=== PATIENT | female | born 1945 | race Caucasian/White ===

== ENCOUNTER 2024-12-22 19:44 | Inpatient (IN) | payer MEDICARE, OTHER, SELFPAY ==
[2024-12-22] VITALS (13 sets, daily range): BP systolic 136–164; BP diastolic 83–95; PULSE 93–115; RESP 15–31; TEMP 37.4–37.7; O2SAT 96–100; BMI 34.2
--- NOTE | ~2024-12-22 | XR_ITS ---
EXAMINATION: XR chest 1V portable DATE: 12/22/2024 20:12 INDICATION: Cough and congestion. TECHNIQUE: A single frontal view of the chest was obtained. COMPARISON: None. FINDINGS: There are mild airspace opacities in the lower lung zones. No pleural effusion or pneumotho rax. The heart size is normal. Surgical clips in the right upper quadrant are likely from cholecystec rufino. IMPRESSION: 1. Mild airspace opacities in the lower lung zones, consistent with atelectasis versus pneumonia. Reviewed, dictated and finalized at location A. MANAGER
--- NOTE | ~2024-12-22 | XR_ITS ---
EXAMINATION: XR chest 1V portable DATE: 12/25/2024 10:02 INDICATION: Pneumonia. TECHNIQUE: A single frontal view of the chest was obtained. COMPARISON: Chest single view 12/22/24 FINDINGS: There are airspace opacities at left lung base. No pleural effusion or pneumothorax of the heart size is normal. IMPRESSION: 1. Worsened airspace opacities at left lung base, consistent with atelectasis versus pneumonia. Reviewed, dictated and finalized at location A. RNAL AUDIT SENIOR MANAGER IMPRESSION: 1. Worsened airspace opacities at left lung base, consistent with atelectasis v ersus pneumonia.
[2024-12-22] MEDS: ONDANSETRON HCL ODT 4 MG TABLET PO (20:19)
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
[2024-12-22 20:36] LABS: Base Excess ABG -3.1 mmol/L (0-2); HCO3 ABG 20.2 mmol/L (23-29); Oxygen Saturation ABG 99.1 % (95-97); Oxyhemoglobin 97.8 % (94-100); PCO2 ABG 31.3 mmHg (35-45); PO2 ABG 260.8 mmHg (75-85); pH ABG 7.43 (7.35-7.45)
[2024-12-22 20:38] LABS: Basophils Absolute Auto 0.05 K/mm3 (0.00-0.10); Basophils Percent Auto 0.5 % (0.0-1.0); Eosinophils Absolute Auto 0.06 K/mm3 (0.02-0.50); Eosinophils Percent Auto 0.7 % (1.0-6.0); Hematocrit 40.7 % (35.0-42.0); Hemoglobin 13.2 g/dL (11.7-13.8); Immature Granulocyte Absolute 0.02 K/mm3 (0.00-0.00); Immature Granulocyte Percent A 0.2 % (0.0-0.0); Lymphocytes Absolute Auto 0.73 K/mm3 (1.10-4.50); Lymphocytes Percent Auto 7.9 % (18.0-42.0); Mean Corpuscular HGB Conc 32.4 g/dL (32-36); Mean Corpuscular Hemoglobin 28.8 pg (27.0-31.0); Mean Corpuscular Volume 88.9 fL (78.0-102.0); Mean Platelet Volume 9.2 fl (9.2-11.8); Monocytes Absolute Auto 0.42 K/mm3 (0.10-0.90); Monocytes Percent Auto 4.6 % (2.0-11.0); Neutrophils Absolute Auto 7.91 K/mm3 (1.70-7.20); Neutrophils Percent Auto 86.1 % (50.0-70.0); Platelet Count Result 256 K/mm3 (150-420); Red Blood Count 4.58 M/mm3 (4.20-5.40); Red Cell Distribution Width 13.1 % (11.6-14.4); White Blood Count 9.2 K/mm3 (4.8-10.8)
[2024-12-22 20:42] LABS: Device NON-REBREATHER MASK; Modified Allen's Test Pass; Site Drawn RIGHT BRACHIAL
[2024-12-22 20:45] LABS: Influenza A QL RT-PCR Positive (Negative); Influenza B QL RT-PCR Negative (Negative); RSV RNA, RT-PCR Negative (Negative); SARS-CoV-2 RNA PCR Negative (Negative)
[2024-12-22] MEDS: SODIUM CHLORIDE 0.9% IV 1,000 ML 999 ML IV CONT (20:48)
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
--- OUTSIDE RECORDS SUMMARY | 2024-12-22 20:48 | XMS_ITS | Clinical Summary ---
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 Not on file 11/12/2023 How often do you feel left out? Not on file 11/12/2023 How often to you feel isolated from others? Not on file 11/12/2023 Financial Resource Strain Answer Date R ecorded In the past 12 months, have you experienced difficulty paying for basic needs like housing, utilities, food, transportation, or clothing Not on file 11/12/2023 Are there any financial conc erns that limit you from seeing the doctor? Not on file 11/12/2023 Transportation Needs Answer Date Record ed In the past 12 months, has l ack of transportation kept you from medical appointments or from getting medications? Not on file 11/12/2023 In the past 12 months, has l ack of transportation kept you from meetings, work, or getting things needed for daily living? Not on file 11/12/2023 [facility] Living Situation Answer Date Jason rded What is your living situation today? Not on file 11/12/[address] you li ve. Do you have problems with any of the following? (Select all that apply) Not on file 11/12/19 24 [facility] Food Insecurity Answer Date Recor ded Within the past 12 months, y ou worried that your food would run out before you got money to buy more Not on file 11/12/2023 Within the past 12 months, t he food you bought just didn't last and you didn't have money to get more Not on file 11/12/2023 [facility] Answer Date Recorded In the last month, did poor health keep you from doing your usual activities, like work, school, or hobbies? Not on file 07/09 In the past year, was there a time when you needed to see a doctor, but could not because it cost too much? Not on file 2023 Do you ever need help reading medical forms or m aterials? Not on file 07/09/2024 Do you feel you would benefi t from resources related to stress, anxiety, or depression? Not on file 07/09/2024 [facility] Housing & Custodial Answer Date Re corded Are you worried that in the next 2 months, you may not have stable housing? Not on file 07/09/2024 Do you lack household suppli es like clothing, shoes, blankets, mattresses, diapers, toothpaste, or shampoo? Not on file 07/09/2024 Sex and Gender Information Value Date Recorded Sex Assigned at Not on file Gender Identity Not on file Sexual Orientation Not on file Plan of Treatment Not on file Medical Devices Not on file
--- OUTSIDE RECORDS SUMMARY | 2024-12-22 20:48 | XMS_ITS ---
Author Organization [facility] Address [address] [place] [address] Phone Care Team Providers Care Glass Crusher Name Role Phone Travis YAP, Eri Treadwell Primary Care Provider [phone] Problems Includes: Active, inactive, and resolved Problems All Visits Onset Date Resolved Date Provider Condition S tatus Radiculopathy 05/17/2020 DIGNA Sánchez DO Active Last Documented On 05/17/2020 3:24PM ; [facility] Note: Unchanged Adhesive Capsulitis of Shoulder Left 01/31/2020 DIGNA Sánchez DO Active Last Documented On 01/31/2020 2:04PM ; [facility] Note: Unchanged Aftercare Orthopedic 01/31/2020 DIGNA Sánchez DO Active Last Documented On 01/31/2020 2:04PM ; [facility] Note: Unchanged Complex Regional Pain Syndrome Type I Upper Limb Left 01/31/2020 DIGNA Sánchez DO Active Last Documented On 01/31/2020 2:04PM ; [facility] Note: Unchanged Contusion with Intact Skin Surface - Hand Left 10/18/2019 DIGNA Sánchez DO Active Last Documented On 10/18/2019 10:47AM ; [facility] Note: Unchanged Fracture of Radius Distal End Intra-articular 10/18/2019 Unknown DIGNA Sánchez DO Resolved Last Documented On 06/21/2020 10:54AM ; [facility] Note: Resolved Patient Communication Requirements 05/28/2016 DIGNA Sánchez DO Active Last Documented On 12/25/2020 2:42PM ; [facility] Note: Stable - none Plan of Treatment Findings Encounter Date Begin physical therapy for l eft hand/wrist pain, trial voltaren gel. recheck prn REVISIT with Spencer Salazar DO, FAOAO 12/25/2020 Last Documented On 1 3:56PM ; [facility] Ordered follow-up visit REVISIT with Spencer delgado DO, FAOAO 12/25/2020 Last Documented On 1 3:56PM ; [facility] Ordered goals discussed REVISIT with Spencer delgado DO, FAOAO 12/25/2020 Last Documented On 1 3:56PM ; [facility] Ordered options discussed REVISIT with Spencer aaron DO, FAOAO 12/25/2020 Last Documented On 1 3:56PM ; [facility] Ordered physical therapy service REVISIT with Mary Salazar DO, FAOAO 12/25/2020 Last Documented On 1 3:56PM ; [facility] Continue OT and PT recheck p rn. She may call for renewal of PT slips REVISIT with Spencer Salazar DO, FAOAO 08/23/2020 Last Documented On 0 2:08PM ; [facility] Ordered follow-up visit REVISIT with Spencer delgado DO, FAOAO 08/23/2020 Last Documented On 0 2:08PM ; [facility] Ordered goals discussed REVISIT with Spencer delgado DO, FAOAO 08/23/2020 Last Documented On 0 2:08PM ; [facility] Ordered options discussed REVISIT with Spencer aaron DO, FAOAO 08/23/2020 Last Documented On 0 2:08PM ; [facility] Continue OT and Plan EMG tiffany ateral arms, recheck for tests results REVISIT with Spencer Salazar DO, FAOAO 06/21/2020 Last Documented On 0 11:05AM ; [facility] Ordered follow-up visit REVISIT with Spencer mckinneyl DO, FAOAO 06/21/2020 Last Documented On 0 11:05AM ; [facility] Ordered goals discussed REVISIT with Spencer Dey ryl DO, FAOAO 06/21/2020 Last Documented On 0 11:05AM ; [facility] Ordered options discussed REVISIT with Spencer Kothari abryl DO, FAOAO 06/21/2020 Last Documented On 0 11:05AM ; [facility] Continue PT and Plan EMG tiffany ateral arms, recheck for tests results in one month REVISIT with Spencer Aragonl DO, FAOAO 05/17/2020 Last Documented On 0 4:26PM ; [facility] Ordered follow-up visit REVISIT with Spencer Dey ryl DO, FAOAO 05/17/2020 Last Documented On 0 4:26PM ; [facility] Ordered goals discussed REVISIT with Spencer Dey ryl DO, FAOAO 05/17/2020 Last Documented On 0 4:26PM ; [facility] Ordered options discussed REVISIT with Spencer Kothari abryl DO, FAOAO 05/17/2020 Last Documented On 0 4:26PM ; [facility] Continue PT and working with Dr. Benavidez and demonstrated exercises, reviewed restrictions. recheck in 2 months REVISIT with Spencer Deyryl DO, FAOAO 03/13/2020 Last Documented On 0 12:13PM ; [facility] Ordered follow-up visit REVISIT with Spencer Dey ryl DO, FAOAO 03/13/2020 Last Documented On 0 12:13PM ; [facility] Ordered goals discussed REVISIT with Spencer Dey ryl DO, FAOAO 03/13/2020 Last Documented On 0 12:13PM ; [facility] Ordered home exercises REVISIT with Spencer Deyr yl DO, FAOAO 03/13/2020 Last Documented On 0 12:13PM ; [facility] Ordered options discussed REVISIT with Spencer Kothari abryl DO, FAOAO 03/13/2020 Last Documented On 0 12:13PM ; [facility] Continue working with Dr. Jenny chamberlain but I will talk with Physical therapy for more help. Recheck in 3 weeks and Refer to Dr. Manjarrez for evaluation for left arm complex regional pain syndrome Telephone - Audio Only with Spencer Salazar DO, FAOAO 02/23/2020 Last Documented On 0 1:51PM ; [facility] Ordered follow-up visit Telephone - Luke o Only with Spencer Salazar DO, FAOAO 02/23/2020 Last Documented On 0 1:51PM ; [facility] Ordered goals discussed Telephone - Luke o Only with Spencer Salazar DO, FAOAO 02/23/2020 Last Documented On 0 1:51PM ; [facility] Ordered options discussed Telephone - [place] Only with Spencer Salazar DO, FAOAO 02/23/2020 Last Documented On 0 1:51PM ; [facility] Ordered reduced physical activity Teleph one - Audio Only with Spencer Salazar DO, FAOAO 02/23/2020 Last Documented On 0 1:51PM ; [facility] Continue gabapentin. Trial a tens unit and continue Physical therapy. recheck in 3 weeks POST OPERATIVE VISIT with Spencer Salazar DO, FAOAO 01/31/2020 Last Documented On 0 2:25PM ; [facility] Ordered follow-up visit POST OPERATIVE VISIT carolynn Salazar DO, FAOAO 01/31/2020 Last Documented On 0 2:25PM ; [facility] Ordered goals discussed POST OPERATIVE VISIT carolynn Salazar DO, FAOAO 01/31/2020 Last Documented On 0 2:25PM ; [facility] Ordered options discussed POST OPERATIVE VISIT with Spencer Salazar DO, FAOAO 01/31/2020 Last Documented On 0 2:25PM ; [facility] evaluate motion POST OPERATIVE VISIT with Elena King PA-C 01/03/2020 Last Documented On 0 3:14PM ; [facility] Ordered follow-up visit with Dr. Salazar in 3 weeks Review lab work and MRI of the wrist POST OPERATIVE VISIT with Elena King PA-C 01/03/2020 Last Documented On 0 3:14PM ; [facility] Plan removal of the external fixator at hospital under sedation tomorrow.Bring splint to surgical removal tomorrow to wear home REVISIT with Spencer Salazar DO, DIGNA 12/13/2019 Last Documented On 0 12:47PM ; [facility] Ordered follow-up visit REVISIT with Spencer delgado DO, FAOAO 12/13/2019 Last Documented On 0 12:47PM ; [facility] Ordered goals discussed REVISIT with Spencer delgado DO, FAOAO 12/13/2019 Last Documented On 0 12:47PM ; [facility] Ordered options discussed REVISIT with Spencer aaron DO, FAOAO 12/13/2019 Last Documented On 0 12:47PM ; [facility] Call if any concerns Tylenol alternating with Motrin every 4 hours for fever or pain Keep your appointment next Thursday with Dr. Salazar WORK IN with Manuel Strickland MD 12/09/2019 Last Documented On 0 11:33AM ; [facility] Pin from Fx removed today wh ich she tolerated well, will wait a few weeks to remove external fixation, patient will begin PT, recheck in 3 to 4 weeks with removal of external fixtation REVISIT with Spencer Salazar DO, FAOAO 11/29/2019 Last Documented On 0 12:09PM ; [facility] Ordered follow-up visit REVISIT with Spencer delgado DO, FAOAO 11/29/2019 Last Documented On 0 12:09PM ; [facility] Ordered goals discussed REVISIT with Spencer delgado DO, FAOAO 11/29/2019 Last Documented On 0 12:09PM ; [facility] Ordered home exercises I dem onstrated motion exercises for the hand REVISIT with Spencer Perez Yisselfayeanisa DO, FAOAO 11/29/2019 Last Documented On 0 12:09PM ; [facility] Ordered options discussed REVISIT with Spencer aaron DO, FAOAO 11/29/2019 Last Documented On 0 12:09PM ; [facility] Ordered physical therapy service REVISIT with Mary Aragonanisa DO, FAOAO 11/29/2019 Last Documented On 0 12:09PM ; [facility] Check wound REVISIT with Elena King PA-C 11/17/2019 Last Documented On 0 6:56PM ; [facility] evaluate motion REVISIT with Elena King PA-C 11/17/2019 Last Documented On 0 6:56PM ; [facility] recheck as scheduled in 2 wk s/ sooner prn REVISIT with Elena King PA-C 11/17/2019 Last Documented On 0 6:56PM ; [facility] Xray REVISIT with Elena King PA-C 11/17/2019 Last Documented On 0 6:56PM ; [facility] Ordered follow-up visit as s cheduled in 2 wks/ sooner prn REVISIT with Elena King PA-C 11/17/2019 Last Documented On 0 6:56PM ; [facility] Removed sutures today and ap plied new dressing to left wrist, external fixator in place.begin small movement as demonstrated. recheck in 3 weeks with xray POST OPERATIVE VISIT with Spencer Perez Yisselfayeanisa DO, FAOAO 11/03/2019 Last Documented On 0 11:34AM ; [facility] Ordered follow-up visit POST OPERATIVE VISIT carolynn Perez Yisselryl DO, FAOAO 11/03/2019 Last Documented On 0 11:34AM ; [facility] Ordered goals discussed POST OPERATIVE VISIT carolynn Perez Yisselryanisa DO, FAOAO 11/03/2019 Last Documented On 0 11:34AM ; [facility] Ordered options discussed POST OPERATIVE VISIT with Spencer Salazar DO, FAOAO 11/03/2019 Last Documented On 0 11:34AM ; [facility] Plan surgery with applicatio n external fixator and possible use of hydro set. Continue ice and elevation until surgery on Thursday10/20/19 REVISIT with Spencer Salazar DO, FAOAO 10/20/2019 Last Documented On 9 4:50PM ; [facility] Ordered follow-up visit REVISIT with Spencer delgado DO, FAOAO 10/20/2019 Last Documented On 9 4:50PM ; [facility] Ordered goals discussed REVISIT with Spencer delgado DO, FAOAO 10/20/2019 Last Documented On 9 4:50PM ; [facility] Ordered options discussed REVISIT with Spencer aaron DO, FAOAO 10/20/2019 Last Documented On 9 4:50PM ; [facility] Schedule CT of left wrist, r echeck for results, may need surgery after swelling resolves ER Follow Up Visit with Spencer Salazar DO, FAOAO 10/18/2019 Last Documented On 9 10:48AM ; [facility] Ordered follow-up visit ER Follow Up Visit with Spencer Salazar DO, FAOAO 10/18/2019 Last Documented On 9 10:48AM ; [facility] Ordered goals discussed ER Follow Up Visit with Spencer Salazar DO, FAOAO 10/18/2019 Last Documented On 9 10:48AM ; [facility] Ordered options discussed ER Follow Up Visit wit kar Salazar DO, FAOAO 10/18/2019 Last Documented On 9 10:48AM ; [facility] Wet prep collected. Discusse d possible causes for the burning including atrophic vaginitis, yeast, or bacterial vaginosis. UA was negative. Will notify patient of results OFFICE VISIT with Nilo Arzola NP 06/25/2018 Last Documented On 8 3:37PM ; [facility] UA collected. Patient would like to wait for results before starting any medication. Will notify patient of results and if treatment is needed OFFICE VISIT with Nilo Arzola NP 06/21/2018 Last Documented On 8 1:38PM ; [facility] left breast US ordered Will notify patient of results OFFICE VISIT with Nilo Arzola NP 04/20/2018 Last Documented On 8 2:16PM ; [facility] Vaginal PAP smear done. Disc ussed the risks of continued premarin use with patient. Patient insisted that she wanted a refill. She states that she can't deal with the hot flashes or vaginal dryness without the medication. Follow up in one year for annual exam or sooner if needed NEW PATIENT with Nilo Arzola NP 05/28/2016 Last Documented On 6 2:56PM ; [facility] Pending Tests Order Diagnosis Results Due Ordering Yessi tompkins Radiology - CT Scan Extremity Upper Left w/o contrast Oth intartic fracture of lower end of left radius, init 10/18/19 Spencer Salazar DO, FAOAO Last Documented On 9 10:45AM ; [facility] Radiology - MRI Upper Extremity - Other Oth intartic fracture of lower end of left radius, init 01/04/20 Elena King PA-C Last Documented On 0 3:18PM ; [facility] Radiology - 5 XRAY Upp Extremity Wrist Oth intartic fracture of lower end of left radius, init 01/04/20 Elena King PA-C Last Documented On 0 3:14PM ; [facility] Referrals To Diagnosis [facility] Rehab PT [facility] Department Rehabilitation Co ntusion of left hand, initial encounter Note: Gentle tissue massage of dorsal hand to mobilize fluid and gentle ROM of fingers Last Documented On 0 7:27AM ; [facility] Physical Medicine and Rehab Comp shania regional pain syndrome I of left upper limb Last Documented On 0 2:23PM ; [facility] Physical Medicine and Rehab Comp shania regional pain syndrome I of left upper limb Last Documented On 0 1:25PM ; [facility] Physical Medicine and Rehab Comp shania regional pain syndrome I of left upper limb Last Documented On 0 3:13PM ; [facility] Rehab PT [facility] Department Rehabilitation Primary osteoarthritis, left hand Note: left hand regional com plex pain syndrome and osteoarthritisleft wrist, most restriction around PIP joints of left fingers, increase motion, decrease pain Last Documented On 1 4:35PM ; [facility] Instructions to patient Watch for signs/symptoms of infection, return to the clinic if seen Last Documented On 0 3:04PM ; [facility] Watch for signs/symptoms of infection, return to the clinic if seen Last Documented On 0 6:54PM ; [facility] Clean incision as instructed Last Documented On 0 6:54PM ; [facility] Education and Decision Aids were provided during visit for: Ibuprofen 800 MG Oral Tablet (Medication) Last Documented On 0 2:21PM ; [facility] Patient Communication Requir ements (Problem) Last Documented On 0 2:21PM ; [facility] Patient education : Routine annual mammogram screening and Pap smear was discussed in detail. The patient verbalized understanding Last Documented On 6 2:49PM ; [facility] Assessments Includes: Assessments for all patient encounters Findings Encounter Date Arthralgia of left hand REVISIT with DIGNA Rodriguez DO 12/25/2020 Last Documented On 1 3:56PM ; [facility] Complex regional pain syndro me type I of the left upper limb REVISIT with DIGNA Sánchez DO 12/25/2020 Last Documented On 1 3:56PM ; [facility] Localized osteoarthritis of left hand RE VISIT with DIGNA Sánchez DO 12/25/2020 Last Documented On 1 3:56PM ; [facility] Localized primary osteoarthr itis of carpometacarpal joint of left thumb REVISIT with Spencer S Habryl DO, FAOAO 12/25/2020 Last Documented On 1 3:56PM ; [facility] Adhesive capsulitis of left shoulder REVISIT wit kar Spencer S Habryl DO, FAOAO 08/23/2020 Last Documented On 0 2:08PM ; [facility] Complex regional pain syndro me type I of the left upper limb REVISIT with Spencer S Habryl DO, FAOAO 08/23/2020 Last Documented On 0 2:08PM ; [facility] Radiculopathy -UPPER EXTREMITY REVISIT with Owen s S Habryl DO, FAOAO 08/23/2020 Last Documented On 0 2:08PM ; [facility] Adhesive capsulitis of left shoulder REVISIT wit kar Spencer S Habryl DO, FAOAO 06/21/2020 Last Documented On 0 11:05AM ; [facility] Complex regional pain syndro me type I of the left upper limb REVISIT with Spencer S Habryl DO, FAOAO 06/21/2020 Last Documented On 0 11:05AM ; [facility] Radiculopathy -UPPER EXTREMITY REVISIT with Owen s S Habryl DO, FAOAO 06/21/2020 Last Documented On 0 11:05AM ; [facility] Adhesive capsulitis of left shoulder REVISIT wit kar Spencer S Habryl DO, FAOAO 05/17/2020 Last Documented On 0 4:26PM ; [facility] Assessment of orthopedic aft ercare left wrist fracture REVISIT with Spencer S Habryl DO, FAOAO 05/17/2020 Last Documented On 0 4:26PM ; [facility] Complex regional pain syndro me type I of the left upper limb REVISIT with Spencer S Habryl DO, FAOAO 05/17/2020 Last Documented On 0 4:26PM ; [facility] Intra-articular fracture of distal end of radius communited REVISIT with Spencer S Habryl DO, FAOAO 05/17/2020 Last Documented On 0 4:26PM ; [facility] Radiculopathy -UPPER EXTREMITY REVISIT with Owen s S Habryl DO, FAOAO 05/17/2020 Last Documented On 0 4:26PM ; [facility] Adhesive capsulitis of left shoulder MED ICATION REFILL with Elena R Slivinski PA-C 05/02/2020 Last Documented On 0 2:09PM ; [facility] Assessment of orthopedic aft ercare left wrist fracture MEDICATION REFILL with Elena R Slivinski PA-C 05/02/2020 Last Documented On 0 2:09PM ; [facility] Complex regional pain syndro me type I of the left upper limb MEDICATION REFILL with Elena R Slivinski PA-C 05/02/2020 Last Documented On 0 2:09PM ; [facility] Contusion of the left hand w ith intact skin surface MEDICATION REFILL with Elena R Slivinski PA-C 05/02/2020 Last Documented On 0 2:09PM ; [facility] Intra-articular fracture of distal end of radius communited MEDICATION REFILL with Elena R Slivinski PA-C 05/02/2020 Last Documented On 0 2:09PM ; [facility] Adhesive capsulitis of left shoulder REVISIT wit h Spencer S Habryl DO, FAOAO 03/13/2020 Last Documented On 0 12:13PM ; [facility] Assessment of orthopedic aft ercare left wrist fracture REVISIT with Spencer S Habryl DO, FAOAO 03/13/2020 Last Documented On 0 12:13PM ; [facility] Complex regional pain syndro me type I of the left upper limb REVISIT with Spencer S Habryl DO, FAOAO 03/13/2020 Last Documented On 0 12:13PM ; [facility] Contusion of the left hand w ith intact skin surface REVISIT with Spencer S Habryl DO, FAOAO 03/13/2020 Last Documented On 0 12:13PM ; [facility] Intra-articular fracture of distal end of radius communited REVISIT with Spencer Aragonl , FAOAO 03/13/2020 Last Documented On 0 12:13PM ; [facility] Adhesive capsulitis of left shoulder Tel ephone - Audio Only with Spencer Salazar DO, FAOAO 02/23/2020 Last Documented On 0 1:51PM ; [facility] Assessment of orthopedic aft ercare left wrist fracture Telephone - Audio Only with Spencer Deyryl DO, FAOAO 02/23/2020 Last Documented On 0 1:51PM ; [facility] Complex regional pain syndro me type I of the left upper limb Telephone - Audio Only with Spencer Deyryl DO, FAOAO 02/23/2020 Last Documented On 0 1:51PM ; [facility] Contusion of the left hand w ith intact skin surface Telephone - Audio Only with Spencer Deyryl DO, FAOAO 02/23/2020 Last Documented On 0 1:51PM ; [facility] Intra-articular fracture of distal end of radius communited Telephone - Audio Only with Spencer Aragonl DO, FAOAO 02/23/2020 Last Documented On 0 1:51PM ; [facility] Adhesive capsulitis of left shoulder POS T OPERATIVE VISIT with Spencer Deyryl DO, FAOAO 01/31/2020 Last Documented On 0 2:25PM ; [facility] Assessment of orthopedic aft ercare left wrist fracture POST OPERATIVE VISIT with Spencer Deyryl DO, FAOAO 01/31/2020 Last Documented On 0 2:25PM ; [facility] Complex regional pain syndro me type I of the left upper limb POST OPERATIVE VISIT with Spencer S Habryl DO, FAOAO 01/31/2020 Last Documented On 0 2:25PM ; [facility] Contusion of the left hand w ith intact skin surface POST OPERATIVE VISIT with Spencer S Habryl DO, FAOAO 01/31/2020 Last Documented On 0 2:25PM ; [facility] Intra-articular fracture of distal end of radius communited POST OPERATIVE VISIT with Spencer Salazar DO, FAOAO 01/31/2020 Last Documented On 0 2:25PM ; [facility] Assessment of orthopedic aft ercare left wrist fracture POST OPERATIVE VISIT with Elena King PA-C 01/03/2020 Last Documented On 0 3:14PM ; [facility] Compression arthralgia of th e left ulna/radius/wrist POST OPERATIVE VISIT with Elena King PA-C 01/03/2020 Last Documented On 0 3:14PM ; [facility] Contusion of the left hand w ith intact skin surface POST OPERATIVE VISIT with Elena King PA-C 01/03/2020 Last Documented On 0 3:14PM ; [facility] Intra-articular fracture of distal end of radius communited POST OPERATIVE VISIT with Elena King PA-C 01/03/2020 Last Documented On 0 3:14PM ; [facility] Assessment of orthopedic aftercare REVISIT with Spencer Salazar DO, FAOAO 12/13/2019 Last Documented On 0 12:47PM ; [facility] Contusion of the left hand w ith intact skin surface REVISIT with Spencer Salazar DO, FAOAO 12/13/2019 Last Documented On 0 12:47PM ; [facility] Intra-articular fracture of distal end of radius communited REVISIT with Spencer Salazar DO, FAOAO 12/13/2019 Last Documented On 0 12:47PM ; [facility] Cellulitis of the left forearm WORK IN with Naeem Strickland MD 12/09/2019 Last Documented On 0 11:33AM ; [facility] Assessment of orthopedic aftercare REVISIT with Spencer Salazar DO, FAOAO 11/29/2019 Last Documented On 0 12:09PM ; [facility] Contusion of the left hand w ith intact skin surface REVISIT with Spencer S Habryl DO, FAOAO 11/29/2019 Last Documented On 0 12:09PM ; [facility] Intra-articular fracture of distal end of radius communited REVISIT with Spencer S Habryl DO, FAOAO 11/29/2019 Last Documented On 0 12:09PM ; [facility] Assessment of orthopedic aftercare REVISIT with Elenaedie King PA-C 11/17/2019 Last Documented On 0 6:56PM ; [facility] Contusion of the left hand w ith intact skin surface REVISIT with Elenaedie Hanseninski PA-C 11/17/2019 Last Documented On 0 6:56PM ; [facility] Intra-articular fracture of distal end of radius communited REVISIT with Elena R Slivinski PA-C 11/17/2019 Last Documented On 0 6:56PM ; [facility] Assessment of aftercare POST OPERATIVE VISIT wit h Spencer S Yisselryl DO, FAOAO 11/03/2019 Last Documented On 0 11:34AM ; [facility] Contusion of the left hand w ith intact skin surface POST OPERATIVE VISIT with Spencer S Yisselryl DO, FAOAO 11/03/2019 Last Documented On 0 11:34AM ; [facility] Intra-articular fracture of distal end of radius communited POST OPERATIVE VISIT with Spencer S Yisselryl DO, FAOAO 11/03/2019 Last Documented On 0 11:34AM ; [facility] Contusion of the left hand w ith intact skin surface REVISIT with Spencer S Habryl DO, FAOAO 10/20/2019 Last Documented On 9 4:50PM ; [facility] Intra-articular fracture of distal end of radius communited REVISIT with Spencer S Habryl DO, FAOAO 10/20/2019 Last Documented On 9 4:50PM ; [facility] Contusion of the left hand w ith intact skin surface ER Follow Up Visit with Spencer S Yisselryl DO, FAOAO 10/18/2019 Last Documented On 9 10:48AM ; [facility] Intra-articular fracture of distal end of radius communited ER Follow Up Visit with DIGNA Sánchez DO 10/18/2019 Last Documented On 9 10:48AM ; [facility] burning in vagina OFFICE VISIT with Nilo barker NP 06/25/2018 Last Documented On 8 3:37PM ; [facility] dysuria OFFICE VISIT with Nilo chi [employer] AND [employer]ATER TESTER 06/21/2018 Last Documented On 8 1:38PM ; [facility] palpable lump in left breast , histroy of mastectomy OFFICE VISIT with Nilo Arzola [employer] WATER TESTER 04/20/2018 Last Documented On 8 2:16PM ; [facility] Routine gynecological exam NEW PATIENT with Rudi Arzola NP 05/28/2016 Last Documented On 6 2:56PM ; [facility] Instructions Includes: Instructions for all patient encounters Instructions to patient Watch for signs/symptoms of infection, return to the clinic if seen Last Documented On 0 3:04PM ; [facility] Watch for signs/symptoms of infection, return to the clinic if seen Last Documented On 0 6:54PM ; [facility] Clean incision as instructed Last Documented On 0 6:54PM ; [facility] Education and Decision Aids were provided during visit for: Ibuprofen 800 MG Oral Tablet (Medication) Last Documented On 0 2:21PM ; [facility] Patient Communication Requir ements (Problem) Last Documented On 0 2:21PM ; [facility] Patient education : Routine annual mammogram screening and Pap smear was discussed in detail. The patient verbalized understanding Last Documented On 6 2:49PM ; [facility] Medical Equipment - Implanted Devices Includes: Current and historical Devices No Medical Equipment Recorded Medications Includes: Current and historical Medications Current Medications (continue as prescribed) Ibuprofen 800 MG Oral Tablet 06/21/2020 Provider: DIGNA Sánchez DO Diagnosis: 2 to 3 times per day. Last Documented On 0 11:03AM By Spencer Salazar DO ; [facility] Premarin 0.625 MG Oral Tablet 10/18/2019 Provider: Diagnosis: po Last Documented On 9 10:02AM By Donna Barnett LPN ; [facility] Omeprazole 20 MG Capsule Delayed Release 05/28/2016 Provider: Diagnosis: by oral route Last Documented On 6 1:24PM By Selena Haskins CMA ; [facility] Synthroid 88 MCG Tablet 05/28/2016 Provider: Diagnosis: by oral route Last Documented On 6 1:24PM By Selena Haskins CMA ; [facility] Past Medications on file Gabapentin 100 MG Oral Capsule 05/31/2020 - 12/25/2020 Provider: DIGNA Levine Diagnosis: 2 tablet TID Last Documented On 1 2:46PM By Hailey Leroy CMA ; [facility] Ibuprofen 800 MG Oral Tablet 05/17/2020 - 08/23/2020 P rovider: Diagnosis: Last Documented On 0 1:17PM By Hailey Leroy CMA ; [facility] Gabapentin 100 MG Oral Capsule 05/17/2020 - 05/24/2020 Provider: DIGNA Levine Diagnosis: Complex regional pain syndrome I of left upper limb 2 tablets 3 times per day. Last Documented On 0 10:03AM By Hailey Leroy CMA ; [facility] Gabapentin 100 MG Oral Capsule 05/02/2020 - 05/24/2020 Provider: Elena montana PA-C Diagnosis: 2 tabs po q am, 2 tabs po at dinner, 1 tab po hs Last Documented On 0 10:03AM By Hailey Leroy CMA ; [facility] Gabapentin 100 MG Oral Capsule 03/13/2020 - 05/17/2020 Provider: DIGNA Levine Diagnosis: Complex regional pain syndrome I of left upper limb 2 am, 2 pm and 1 HS Last Documented On 0 2:29PM By Hailey Leroy CMA ; [facility] Gabapentin 100 MG Oral Capsule 01/31/2020 - 05/17/2020 Provider: Diagnosis: 2 tablets in am 2 in afternoon one at noc. Last Documented On 0 2:29PM By Hailey Leroy CMA ; [facility] Gabapentin 100 MG Oral Capsule 01/26/2020 - 01/31/2020 Provider: DIGNA Levine Diagnosis: Take 2 caps po qam, 2 po at 5pm, 1 po QHS Last Documented On 0 11:39AM By Penny Shi LPN ; [facility] Gabapentin 100 MG Oral Capsule 01/11/2020 - 01/26/2020 Provider: DIGNA Levine Diagnosis: Take 2 caps po qam, 2 po at 5pm, 1 po QHS Last Documented On 0 11:39AM By Penny Shi LPN ; [facility] EQ Ibuprofen 200 MG Oral Tablet 01/04/2020 - 0 Provider: Diagnosis: tid/ prn wrist pain Last Documented On 0 10:50AM By Hailey Leroy CMA ; [facility] Gabapentin 100 MG Oral Capsule 12/22/2019 - 01/11/2020 Provider: DIGNA Levine Diagnosis: 1 cap po three times a day Last Documented On 0 12:03PM By Dnona Barnett LPN ; [facility] Valium 5 MG Oral Tablet 12/15/2019 - 12/25/2019 Provid er: Elena King PA-C Diagnosis: 1 tab po hs prn arm spasm/ pain Last Documented On 0 2:51PM By Elena King PA-C ; [facility] Bactrim DS 800-160 MG Oral Tablet 12/09/2019 - 12/16/2019 Provider: Manuel Strickland MD Diagnosis: Cellulitis of le ft upper limb Take 1 tablet by mouth every 12 hrs Last Documented On 0 11:29AM By Manuel Strickland MD ; [facility] Keflex 500 MG Oral Capsule 11/17/2019 - 11/24/2019 Pro vider: Elena King PA-C Diagnosis: 1 tab po qid x 7 days Last Documented On 0 3:06PM By Elena King PA-C ; [facility] Keflex 500 MG Oral Capsule 11/10/2019 - 11/14/2019 Pro vider: Spencer Salazar DO, FAOAO Diagnosis: 1 cap po three times a day until gone Last Documented On 0 2:20PM By Donna Barnett LPN ; [facility] Ibuprofen 200 MG Oral Tablet 11/03/2019 - 01/03/2020 P rovider: Diagnosis: po Last Documented On 0 3:56PM By Donna Barnett LPN ; [facility] Premarin 0.625MG Oral Tablet 05/03/2018 - 01/28/2019 P rovider: Nilo Arzola [employer] Diagnosis: TAKE 1 TABLET DAILY Last Documented On 8 3:57PM By Nilo WAY ; [facility] Premarin 0.625MG Oral Tablet 06/03/2017 - 05/03/2018 P rovider: Nilo Arzola [employer] Diagnosis: TAKE 1 TABLET DAILY Last Documented On 8 3:56PM By Nilo WAY ; [facility] Fish Oil 1200 MG Capsule 05/28/2016 - 04/20/2018 Provi nathan: Diagnosis: by oral route Last Documented On 8 1:25PM By Silvia MARROQUIN ; [facility] Premarin 0.625 MG Tablet 05/28/2016 - 05/28/2016 Provi nathan: Diagnosis: by oral route Last Documented On 6 2:55PM By Nilo WAY ; [facility] Premarin 0.625 MG Tablet 05/28/2016 - 11/24/2016 Provi nathan: Nilo Arzola [employer] Diagnosis: daily by oral route Last Documented On 6 3:10PM By Nilo WAY ; [facility] Medications Administered Includes: Administered Medications in patient's chart No Administered Medications Recorded Vital Signs Includes: Vital Signs through 12/22/2024 Vital Name 12/25/2020 02:42P 08/23/2020 01:14P 06/21/2020 10:03A 05/17/2020 02:27P 03/13/2020 10:45A Blood Pressure Sitting R 124/76 130/72 134/78 BP Cuff Size Regular Regular Regular Regular Regular Pulse Rate-Sitting (bpm) 76 72 68 72 72 Respiration Rate (breaths/min) 18 18 18 18 18 Temp-Tympanic (F) 96.2 96.2 96.3 97.9 Height (in) 65.75 65.75 65.75 65.75 65.75 Weight (lb) 211 216 219 215 215 Body Mass Index (kg/m2) 34.3 35.1 35.6 35.0 35.0 Body Surface Area (m2) 2.0 2.1 2.1 2.1 2.1 Pain Level 3 0 3 0 0 Blood Pressure Sitting L 154/80 146/80 Temp-Oral (F) 98.6 Last Documented: On 12/25/2020 2:47PM ; [facility] On 08/23/2020 1:19PM ; [facility] On 06/21/2020 10:07AM ; [facility] On 05/17/2020 2:31PM ; [facility] On 03/13/2020 10:49AM ; [facility] Vital Name 02/23/2020 11:42A 01/31/2020 01:14P 01/03/2020 03:53P 12/13/2019 11:33A 12/09/2019 10:37A Blood Pressure Sitting R 122/78 BP Cuff Size Regular Pulse Rate-Sitting (bpm) 78 80 80 83 Respiration Rate (breaths/min) 18 18 18 20 Height (in) 65.75 65.75 65.75 65.75 65.75 Weight (lb) 215 206 Body Mass Index (kg/m2) 35.0 33.5 32.9 32.9 Body Surface Area (m2) 2.1 2.0 2.0 2.0 Pain Level 8 4 2 3 Blood Pressure Sitting L 122/80 Temp-Oral (F) 98.6 Blood Pressure Sitting (mmHg) 120/80 124/80 Temp-Temporal 98.2 Oxygen Saturation (%) 97 Flow Rate (l/min) (None (Room Air)) FiO2 (%) 21 Note: VDORT RMA Last Documented: On 02/23/2020 11:42AM ; [facility] On 01/31/2020 1:22PM ; [facility] On 01/03/2020 3:57PM ; [facility] On 12/13/2019 11:48AM ; [facility] On 12/09/2019 10:41AM ; [facility] Vital Name 11/29/2019 10:37A 11/17/2019 02:15P 11/17/2019 02:14P 11/03/2019 10:05A 10/20/2019 01:29P Blood Pressure Sitting R 147/96 BP Cuff Size Regular Pulse Rate-Sitting (bpm) 84 78 76 80 Respiration Rate (breaths/min) 20 18 20 18 Height (in) 65.75 65.75 65.75 65.75 Weight (lb) 202 202.8 203 209 Body Mass Index (kg/m2) 32.9 33.0 34.0 Body Surface Area (m2) 2.0 2.0 2.0 Pain Level 8 4 5 0 Blood Pressure Sitting (mmHg) 140/84 140/80 150/90 Last Documented: On 11/29/2019 10:54AM ; [facility] On 11/17/2019 2:18PM ; [facility] On 11/17/2019 2:14PM ; [facility] On 11/03/2019 10:44AM ; [facility] On 10/20/2019 1:34PM ; [facility] Vital Name 10/18/2019 09:44A 06/25/2018 02:59P 06/21/2018 01:18P 05/03/2018 03:56P 04/20/2018 01:16P BP Cuff Size Regular Regular Regular Pulse Rate-Sitting (bpm) 80 80 84 68 Respiration Rate (breaths/min) 20 16 18 18 Height (in) 65.75 65.75 65.75 65.75 65.75 Weight (lb) 209 206 206 210 Body Mass Index (kg/m2) 34.0 33.5 33.5 34.2 Body Surface Area (m2) 2.0 2.0 2.0 2.0 Pain Level 2 0 0 0 Blood Pressure Sitting L 122/80 114/76 122/78 Blood Pressure Sitting (mmHg) 144/86 Note: Patient is requesting a refill of premarin. She is aware of the risks of continued use and continues to request a refill. US report reviewed with patient. 6 month follow up ordered. Actual height Last Documented: On 10/18/2019 9:56AM ; [facility] On 06/25/2018 3:00PM ; [facility] On 06/21/2018 1:27PM ; [facility] On 05/03/2018 3:57PM ; [facility] On 04/20/2018 1:25PM ; [facility] Vital Name 05/28/2016 01:20P Blood Pressure Sitting R 130/80 BP Cuff Size Regular Pulse Rate-Sitting (bpm) 76 Respiration Rate (breaths/min) 18 Height (in) 66 Weight (lb) 180 Body Mass Index (kg/m2) 29.1 Body Surface Area (m2) 1.9 Pain Level 0 Pulse Rhythm Regular Last Documented: On 05/28/2016 1:22PM ; [facility] Results Includes: Results through 12/22/2024 CBC WITH AUTO DIFF [facility] Ordered by Elena Momin i, PA-C on 01/04/2020 Collected: 01/06/2020 Report ed: 01/06/2020 10:15 [address] [place], [address] Last Documented On 0 11:05AM ; [facility] Reviewed by Elena montana PA-C on 01/06/2020; All test results are final unless otherwise noted. BASOPHILS # (AUTO) 0.06 K/UL (0.01-0.08) N (Normal) Last Documented On 0 11:05AM ; [facility] Note: Responsible Observer: AUTOINS (AUT OINS) BASOPHILS % (AUTO) 0.7 % (0-1.1) N (Normal) Last Documented On 0 11:05AM ; [facility] Note: Responsible Observer: AUTOINS (AUT OINS) EOSINOPHILS # (AUTO) 0.08 K/UL (0.03-0.48) N (Normal) Last Documented On 0 11:05AM ; [facility] Note: Responsible Observer: AUTOINS (AUT OINS) EOSINOPHILS % (AUTO) 1.0 % (1-5) N (Normal) Last Documented On 0 11:05AM ; [facility] Note: Responsible Observer: AUTOINS (AUT OINS) HEMATOCRIT 41.3 % (35.5-44.9) N (Normal) Last Documented On 0 11:05AM ; [facility] Note: Responsible Observer: AUTOINS (AUT OINS) HEMOGLOBIN 13.6 G/DL (11.6-15.0) N (Normal) Last Documented On 0 11:05AM ; [facility] Note: Responsible Observer: AUTOINS (AUT OINS) IG # (AUTO) 0.02 K/UL (0-1.0) N (Normal) Last Documented On 0 11:05AM ; [facility] Note: Responsible Observer: AUTOINS (AUT OINS) IG % (AUTO) 0.2 % (0-0) H (High) Last Documented On 0 11:05AM ; [facility] Note: Responsible Observer: AUTOINS (AUT OINS) LYMPHOCYTES # (AUTO) 2.94 K/UL (0.95-3.07) N (Normal) Last Documented On 0 11:05AM ; [facility] Note: Responsible Observer: AUTOINS (AUT OINS) LYMPHOCYTES % (AUTO) 35.4 % (18-45) N (Normal) Last Documented On 0 11:05AM ; [facility] Note: Responsible Observer: AUTOINS (AUT OINS) MEAN CORPUSCULAR HEMOGLOBIN 29.2 PG (27.0-34.0) N (Normal) Last Documented On 0 11:05AM ; [facility] Note: Responsible Observer: AUTOINS (AUT OINS) MEAN CORPUSCULAR HGB CONC 32.9 G/DL (32.0-36.0) N (Normal) Last Documented On 0 11:05AM ; [facility] Note: Responsible Observer: AUTOINS (AUT OINS) MEAN CORPUSCULAR VOLUME 88.8 FL (78.2-97.9) N (Normal) Last Documented On 0 11:05AM ; [facility] Note: Responsible Observer: AUTOINS (AUT OINS) MONOCYTES # (AUTO) 0.67 K/UL (0.26-0.81) N (Normal) Last Documented On 0 11:05AM ; [facility] Note: Responsible Observer: AUTOINS (AUT OINS) MONOCYTES % (AUTO) 8.1 % (0-13.3) N (Normal) Last Documented On 0 11:05AM ; [facility] Note: Responsible Observer: AUTOINS (AUT OINS) MEAN PLATELET VOLUME 9.1 FL (7.5-11.2) N (Normal) Last Documented On 0 11:05AM ; [facility] Note: Responsible Observer: AUTOINS (AUT OINS) NEUTROPHILS # (AUTO) 4.54 K/UL (1.56-6.45) N (Normal) Last Documented On 0 11:05AM ; [facility] Note: Responsible Observer: AUTOINS (AUT OINS) NEUTROPHILS % (AUTO) 54.6 % (41-74) N (Normal) Last Documented On 0 11:05AM ; [facility] Note: Responsible Observer: AUTOINS (AUT OINS) NRBC# 0.00 K/UL N (Normal) Last Documented On 0 11:05AM ; [facility] Note: Responsible Observer: AUTOINS (AUT OINS) NRBC % 0.0 % N (Normal) Last Documented On 0 11:05AM ; [facility] Note: Responsible Observer: AUTOINS (AUT OINS) PLATELET COUNT 316.0 K/UL (157-371) N (Normal) Last Documented On 0 11:05AM ; [facility] Note: Responsible Observer: AUTOINS (AUT OINS) RED BLOOD COUNT 4.65 M/UL (4.10-5.10) N (Normal) Last Documented On 0 11:05AM ; [facility] Note: Responsible Observer: AUTOINS (AUT OINS) RED CELL DISTRIBUTION WIDTH 12.5 % (12.2-16.1) N (Normal) Last Documented On 0 11:05AM ; [facility] Note: Responsible Observer: AUTOINS (AUT OINS) WHITE BLOOD COUNT 8.31 K/UL (3.4-9.6) N (Normal) Last Documented On 0 11:05AM ; [facility] Note: Responsible Observer: AUTOINS (AUT OINS) ERYTHROCYTE SEDIMENTATION RATE [facility] Ordered by Elena Momin i, PA-C on 01/04/2020 Collected: 01/06/2020 Report ed: 01/06/2020 10:[address] [place], [address] Last Documented On 0 11:05AM ; [facility] Reviewed by Elena montana PA-C on 01/06/2020; All test results are final unless otherwise noted. ERYTHROCYTE SEDIMENTATION RATE 27 MM/HR (0-30) N (Normal) Last Documented On 0 11:05AM ; [facility] Note: Responsible Observer: NADER MACIAS (KMCARTHU) C-REACTIVE PROTEIN [facility] Ordered by Elena Momin i, PA-C on 01/04/2020 Collected: 01/06/2020 Report ed: 01/06/2020 10:32 [address] [place], [address] Last Documented On 0 11:05AM ; [facility] Reviewed by Elena montana PA-C on 01/06/2020; All test results are final unless otherwise noted. C-REACTIVE PROTEIN 0.8 mg/dl (0-0.9) N (Normal) Last Documented On 0 11:05AM ; [facility] Note: Responsible Observer: AUTOINS (AUT OINS) Reported Physicians [facility] Ordered by Elena Momin i, PA-C on 01/04/2020 Collected: 01/06/2020 Report ed: 01/06/2020 10:32 [address] [place], [address] Last Documented On 0 11:05AM ; [facility] Reviewed by Elena montana PA-C on 01/06/2020; All test results are final unless otherwise noted. Reported Physicians See Note None Last Documented On 0 11:05AM ; [facility] Note: Reported Physicians:Ordering: Vinnie ROSEending: CHRISTINE SHELLYCopy To: MANUEL KINGYCchandrika To: ERI XIAO WET PREP [facility] Ordered by Nilo rod [employer] AND WATER TESTER on 06/25/2018 Collected: 06/25/2018 Report ed: 06/25/2018 19:23 [address] [place], [address] Last Documented On 8 5:16PM ; [facility] Reviewed by Nilo owens [employer] WATER TESTER on 06/28/2018; All test results are final unless otherwise noted. CLUE CELLS NO CLUE CELLS SEEN (NCC) N (Normal) Last Documented On 8 5:16PM ; [facility] Note: Responsible Observer: GERMAIEN CANCI LLA (ACANCILL) WET PREP FOR FUNGUS NO FUNGAL ELEMENTS (NFEP) N (Normal) Last Documented On 8 5:16PM ; [facility] Note: Responsible Observer: GERMAINE CANCI LLA (ACANCILL) WET PREP FOR WBC'S 0-5/HPF (NS) None Last Documented On 8 5:16PM ; [facility] Note: Responsible Observer: GERMAINE CANCI LLA (ACANCILL) Reported Physicians [facility] Ordered by Nilo rod NP on 06/25/2018 Collected: 06/25/2018 Report ed: 06/25/2018 19:23 [address] [place], [address] Last Documented On 8 5:16PM ; [facility] Reviewed by Nilo owens [employer] AND WATER TESTER on 06/28/2018; All test results are final unless otherwise noted. Reported Physicians See Note None Last Documented On 8 5:16PM ; [facility] Note: Reported Physicians:Ordering: Yomi ARAYAending: Heidi ARZOLA To: NILO ARZOLA URINALYSIS W/ CULTURE IF IND [facility] Ordered by Nilo rod [employer] WATER TESTER on 06/21/2018 Collected: 06/21/2018 Report ed: 06/21/2018 18:07 [address] [place], [address] Last Documented On 8 11:04AM ; [facility] Reviewed by Nilo owens [employer] AND WATER TESTER on 06/22/2018; All test results are final unless otherwise noted. Note: Has Specimen been Ul ected? (Med. Grp. answer 'Y') Y Specimen Collected By: JANN NITRATE, URINE NEGATIVE (NEG) N (Normal) Last Documented On 8 11:04AM ; [facility] Note: Responsible Observer: GERMAINE CANCI LLA (ACANCILL) BILIRUBIN, URINE NEGATIVE (NEG) N (Normal) Last Documented On 8 11:04AM ; [facility] Note: Responsible Observer: GERMAINE CANCI LLA (ACANCILL) BLOOD, URINE NEGATIVE (NEG) N (Normal) Last Documented On 8 11:04AM ; [facility] Note: Responsible Observer: GERMAINE CANCI LLA (ACANCILL) CLARITY,URINE CLEAR (CLR) N (Normal) Last Documented On 8 11:04AM ; [facility] Note: Responsible Observer: GERMAINE CANCI LLA (ACANCILL) COLOR,URINE YELLOW (STR/YEL) N (Normal) Last Documented On 8 11:04AM ; [facility] Note: Responsible Observer: GERMAINE CANCI LLA (ACANCILL) GLUCOSE, URINE NEGATIVE (NEG) N (Normal) Last Documented On 8 11:04AM ; [facility] Note: Responsible Observer: GREMAINE CANCI LLA (ACANCILL) KETONES, URINE NEGATIVE (NEG) N (Normal) Last Documented On 8 11:04AM ; [facility] Note: Responsible Observer: GERMAINE CANCI LLA (ACANCILL) LEUKOCYTE ESTERASE, URINE NEGATIVE (NEG) N (Normal) Last Documented On 8 11:04AM ; [facility] Note: Responsible Observer: GERMAINE CANCI LLA (ACANCILL) PH,URINE 5 pH N (Normal) Last Documented On 8 11:04AM ; [facility] Note: Responsible Observer: GERMAINE CANCI LLA (ACANCILL) PROTEIN,URINE NEGATIVE (NEG/TRACE) N (Normal) Last Documented On 8 11:04AM ; [facility] Note: Responsible Observer: GERMAINE CANCI LLA (ACANCILL) UROBILINOGEN NORMAL (0.1-2.0) N (Normal) Last Documented On 8 11:04AM ; [facility] Note: Responsible Observer: GERMAINE CANCI LLA (ACANCILL) SPECIFIC GRAVITY,URINE 1.028 (1.0160-1.0220) H (High) Last Documented On 8 11:04AM ; [facility] Note: Responsible Observer: GERMAINE CANCI LLA (ACANCILL) Reported Physicians [facility] Ordered by Nilo rod NP on 06/21/2018 Collected: 06/21/2018 Report ed: 06/21/2018 18:07 [address] [place], [address] Last Documented On 8 11:04AM ; [facility] Reviewed by Nilo owens NP on 06/22/2018; All test results are final unless otherwise noted. Reported Physicians See Note None Last Documented On 8 11:04AM ; [facility] Note: Reported Physicians:Ordering: Yomi ARAYAending: Heidi ARZOLA To: NILO ARZOLA History of Present Illness History of Present Illness not supported for this document type No History of Present Illness Recorded Social History Description Last Updated Smoking status : Never smoker 12/09/2019 Last Documented On 0 11:33AM ; [facility] Currently 10/18/2019 Last Documented On 9 10:48AM ; [facility] ~Retired ~Seldom alcohol use. ~D enies any tobacco use 05/28/2016 Last Documented On 6 2:56PM ; [facility] Sexually active 05/28/2016 Last Documented On 6 2:56PM ; [facility] Alcohol use seldom 05/28/2016 Last Documented On 6 2:56PM ; [facility] Caffeine use 05/28/2016 Last Documented On 6 2:56PM ; [facility] Exercising regularly 05/28/2016 Last Documented On 6 2:56PM ; [facility] Not using drugs 05/28/2016 Last Documented On 6 2:56PM ; [facility] Retired 05/28/2016 Last Documented On 6 2:56PM ; [facility] Procedures and Surgical History Includes: Procedures through 12/22/2024 Procedures Code Diagnosis Performing Provider Service Location Service Date Xray Wrist Complete Min Three Views (LEFT SIDE FOR PROCEDURES DONE ON LEFT SIDE OF BODY, X ray taken using film) 45517 Primary osteoarthritis, left hand [facility] Last Documented On 1 4:10AM ; [facility] Arthrocentesis;intermediate Joint/bursa Wrist Ankle Elbow (Return to OR for related procedure during Post Op, Seperate Structure, LEFT SIDE FOR PROCEDURES DONE ON LEFT SIDE OF BODY) Ankylosis, left wrist Spencer S Habryl DO, [facility] 01/16/2020 Last Documented On 0 6:22AM ; [facility] Manip Under Anesth Shoulder Joint (Unrelated procedure/service by same physician Post Op) 81893 Adhesive capsulitis of left shoulder Spencer Salazar DO, [facility] 01/16/2020 Last Documented On 0 6:22AM ; [facility] Manipulation under Anesthesia Shoulder Joint 75205 Adhesive capsulitis of left shoulder Elena Rod jarrodjovanny [facility] 01/16/2020 Last Documented On 0 10:21AM ; [facility] Xray Exam Wrist Two Views (X ray taken using film) 10577 Oth intartic fracture of lower end of left radius, init [facility]2020 Last Documented On 0 9:46PM ; [facility] Removeal Comber Setter Fix Device W Anesth (Related procedure/service by same physician during Post Op, LEFT SIDE FOR PROCEDURES DONE ON LEFT SIDE OF BODY) Unsp fx the low end left rad, subs for clos fx w routn heal, Complex regional pain syndrome I [facility] left upper [facility] Last Documented On 0 5:52AM ; [facility] Removal External Fixation Device w Anesthesia Unsp fx the low end left rad, subs for clos fx w routn heal, Complex regional pain syndrome I of left upper limb Elena Rod zena [facility] 12/14/2019 Last Documented On 0 5:52AM ; [facility] Xray Wrist Complete Min Three Views (X ray taken using film) 06509 Oth intartic fx low end l rad, subs for clos fx w routn heal Spencer [facility]azar [facility] 12/13/2019 Last Documented On 0 10:52AM ; [facility] Xray Wrist Complete Min Three Views (X ray taken using film) 03278 Oth intartic fx low end l rad, subs for clos fx w routn heal Spencer S Habryl [facility], [facility] 11/29/2019 Last Documented On 0 5:55PM ; [facility] Xray Wrist Complete Min Three Views (X ray taken using film) 87040 Oth intartic fx low end l rad, subs for clos fx w routn heal [facility]/17[facility]2019 Last Documented On 0 6:10AM ; [facility] Xray Wrist Complete Min Three Views (X ray taken using film) 27147 Oth intartic fx low end l rad, subs for clos fx w routn heal Spencer S Habryl [facility], [facility] 11/03/2019 Last Documented On 0 7:35PM ; [facility] Application of Multiplane Unilateral External Fixation Syste ([facility] DOCK-LIZET[facility], LEFT SIDE FOR PROCEDURES DONE ON LEFT SIDE OF BODY) Ot intartic fracture of lower end of left radius, [facility] Elenaedie [facility]IXEben [facility] [facility] 10/[facility]/2019 Last Documented On 0 12:07PM ; [facility] Percutaneous Skeletal Fixation Distal Radial Fracture (LEFT SIDE FOR PROCEDURES DONE ON LEFT SIDE OF BODY) 75657 Ot intartic fracture of lower end of left radius, [facility] 10/24/2019 Last Documented On 0 12:07PM ; [facility] Apply Mulitplane Unilat Comber Setter Fix (LEFT SIDE FOR PROCEDURES DONE ON LEFT SIDE OF BODY) Ot intartic fracture of lower end of left radius, [facility] 10/24/2019 Last Documented On 0 12:07PM ; [facility] Percutaneous Skeletal Fixation Distal Radial Fracture 69754 Ot intartic fracture of lower end of left radius, [facility] 10/24/2019 Last Documented On 0 12:07PM ; [facility] Medicare DIRECTOR OF STRATEGIC COMMUNICATIONS Breast and Pelvic Exam G0101 Encntr for cutter and presser exam (general) (routine) w/o abn findings, Encounter for screening for malignant neoplasm of vagina Nilo Arzola NP [facility] answering service agent Clinic C 05/28/2016 Last Documented On 6 12:59PM ; [facility] Surgical History Last Updated History of cholecystectomy 10/18/2019 Last Documented On 9 10:48AM ; [facility] Surgical / procedural histor y tonsillectomy, hysterectomy, ooporectomy, choleycystectomy, colonoscopy, double mastectomy, thyroidectomy, bladder sling 05/28/2016 Last Documented On 6 2:56PM ; [facility] History of hemorrhoidectomy 05/28/2016 Last Documented On 6 2:56PM ; [facility] History of hysterectomy 05/28/2016 Last Documented On 6 2:56PM ; [facility] History of oophorectomy 05/28/2016 Last Documented On 6 2:56PM ; [facility] History of tonsillectomy 05/28/2016 Last Documented On 6 2:56PM ; [facility] Medical History Includes: Medical History in patient's chart Description Last Updated Other surgery: bilateral mas tectomy / thyroidectomy ~Left wrist pinning 10-24-19 11/03/2019 Last Documented On 0 11:34AM ; [facility] History of GERD 10/18/2019 Last Documented On 9 10:48AM ; [facility] History of menopause 04/20/2018 Last Documented On 8 2:16PM ; [facility] asthma, hemorrhoids, hypoglycemia, measl es, mumps, tumor on thyroid 05/28/2016 Last Documented On 6 2:56PM ; [facility] 2 05/28/2016 Last Documented On 6 2:56PM ; [facility] Para 2 05/28/2016 Last Documented On 6 2:56PM ; [facility] History of complete colonoscopy 2015 Last Documented On 6 2:56PM ; [facility] History of asthma 05/28/2016 Last Documented On 6 2:56PM ; [facility] History of cholecystitis 05/28/2016 Last Documented On 6 2:56PM ; [facility] History of hemorrhoids 05/28/2016 Last Documented On 6 2:56PM ; [facility] History of hypoglycemia 1989 05/28/2016 Last Documented On 6 2:56PM ; [facility] History of hypotension with Last Documented On 6 2:56PM ; [facility] History of measles (rubeola) 05/28/2016 Last Documented On 6 2:56PM ; [facility] History of mumps 05/28/2016 Last Documented On 6 2:56PM ; [facility] History of streptococcal sore throat Last Documented On 6 2:56PM ; [facility] History of urinary tract infection 05/28 Last Documented On 6 2:56PM ; [facility] History of varicella 05/28/2016 Last Documented On 6 2:56PM ; [facility] Thyroid disease 05/28/2016 Last Documented On 6 2:56PM ; [facility] Family History Includes: Family History in patient's chart Description Last Updated 3 children 10/18/2019 Last Documented On 9 10:48AM ; [facility] father: , brain canc er, colon cancer ~Mother: history of ovarian cancer ~sister: melanoma 05/28/2016 Last Documented On 6 2:56PM ; [facility] Family history of malignant neoplasm of large intestine dad 05/28/2016 Last Documented On 6 2:56PM ; [facility] Family history of malignant neoplasm of the ovary Mom 05/28/2016 Last Documented On 6 2:56PM ; [facility] Review of Systems Review of Systems not supported for this document type No Review of Systems Recorded Mental Status No Mental Status Recorded Functional Status No Functional Status Recorded Physical Exam Physical Exam not supported for this document type No Physical Exam Recorded Allergies Includes: Active, inactive, and resolved Allergies Substance Type Reaction Onset Date Resolved Date Statu s traMADol HCl Allergy 05/17/2020 Active Last Documented On 1 2:45PM ; [facility] EC-Naproxen Allergy 05/17/2020 Active Last Documented On 1 2:45PM ; [facility] Dramamine Allergy Hives / Urticaria 06/21/2018 A ctive Last Documented On 1 2:45PM ; [facility] Codeine and Related Allergy Vomiting 06/21/2018 Active Last Documented On 1 2:45PM ; [facility] Encounters Includes: Encounters through 12/22/2024 Encounter Provider Location Date Check-In Time Check-Out Time Diagnosis [Patient Encounter] DIGNA Sánchez DO 021 12/25/2020 4:33PM 12/25/2020 11:59PM [facility] 2:34PM 3:50PM Complex Regional Pain Syndrome Type I Upper Limb Left,Osteoarthriti s Localized Hand Left,Osteoarthriti s Localized Primary Carpometacarpal Joint Left Thumb,Arthralgia - Hand Left [facility] 020 1:01PM 2:08PM Complex Regional Pain Syndrome Type I Upper Limb Left,Radiculopathy ,Adhesive Capsulitis of Shoulder Left RE[facility]IT [facility] 020 10:00AM 11:07AM Complex Regional Pain Syndrome Type I Upper Limb Left,Radiculopathy ,Adhesive Capsulitis of Shoulder Left [Patient Encounter] DIGNA Sánchez DO 020 05/17/2020 10:02AM 05/17/2020 11:59PM REVISIT DIGNA Sánchez DO, [facility] 2:23PM 3:30PM Complex Regional Pain Syndrome Type I Upper Limb Left,Adhesive Capsulitis of Shoulder Left,Fracture of Radius Distal End Intra-articular,As sessment of Aftercare Orthopedic,Radicul opathy MEDICATION REFILL Elena King PA-C [facility] 03/13/2020 12:18PM 03/13/2020 11:59PM Contusion with Intact Skin Surface - Hand Left,Complex Regional Pain Syndrome Type I Upper Limb Left,Adhesive Capsulitis of Shoulder Left,Fracture of Radius Distal End Intra-articular,As sessment of Aftercare Orthopedic [facility]IT [facility] 10:35[facility] 12:14PM Contusion with Intact Skin Surface - Hand Left,Complex Regional Pain Syndrome Type I Upper Limb Left,Adhesive Capsulitis of Shoulder Left,Fracture of Radius Distal End Intra-articular,As sessment of Aftercare Orthopedic Telephone - Audio Only DIGNA Sánchez DO [facility] 10:40[facility] 1:39PM Contusion with Intact Skin Surface - Hand Left,Complex Regional Pain Syndrome Type I Upper Limb Left,Adhesive Capsulitis of Shoulder Left,Fracture of Radius Distal End Intra-articular,As sessment of Aftercare Orthopedic POST OPERATIVE VISIT DIGNA Sánchez DO [facility] 020 1:11PM 2:26PM Contusion with Intact Skin Surface - Hand Left,Fracture of Radius Distal End Intra-articular,As sessment of Aftercare Orthopedic,Complex Regional Pain Syndrome Type I Upper Limb Left,Adhesive Capsulitis of Shoulder Left MEDICATION REFILL Spencer Salazar DO [facility] 020 01/03/2020 11:38AM 01/03/2020 11:59PM MEDICATION REFILL Spencer Salazar DO [facility] 020 01/03/2020 12:02PM 01/03/2020 11:59PM POST OPERATIVE VISIT Elena King PA-C, [facility] 020 3:11PM 5:10PM Contusion with Intact Skin Surface - Hand Left,Fracture of Radius Distal End Intra-articular,Co mpression Arthralgia - Ulna / Radius / Wrist Left,Assessment of Aftercare Orthopedic MEDICATION REFILL Spencer Salazar DO, [facility] 020 12/13/2019 11:33AM 12/13/2019 11:59PM MEDICATION REFILL Elena King PA-C [facility] 12/13/2019 2:48PM 12/13/2019 11:59PM REVISIT DIGNA Sánchez DO [facility] 10:53AM 1:04PM Contusion with Intact Skin Surface - Hand Left,Fracture of Radius Distal End Intra-articular,As sessment of Aftercare Orthopedic WORK IN Manuel Strickland MD [facility] 9:52AM 11:50AM Cellulitis of the Left Forearm REVISIT DIGNA Sánchez DO [facility] 10:13AM 12:13PM Contusion with Intact Skin Surface - Hand Left,Fracture of Radius Distal End Intra-articular,As sessment of Aftercare Orthopedic REVISIT Elena King PA-C [facility] 2:01PM 3:20PM Contusion with Intact Skin Surface - Hand Left,Fracture of Radius Distal End Intra-articular,As sessment of Aftercare Orthopedic MEDICATION REFILL Spencer Salazar DO, [facility] 020 11/03/2019 2:17PM 11/03/2019 11:59PM POST OPERATIVE VISIT DIGNA Sánchez DO [facility] 9:30AM 11:27AM Contusion with Intact Skin Surface - Hand Left,Fracture of Radius Distal End Intra-articular,As sessment of Aftercare REVISIT Spencer Salazar DO [facility] 12:38PM 3:16PM Contusion with Intact Skin Surface - Hand Left,Fracture of Radius Distal End Intra-articular ER Follow Up Visit Spencer Salazar DO, DIGNA [facility] 019 9:10AM 10:43AM Fracture of Radius Distal End Intra-articular,Co ntusion with Intact Skin Surface - Hand Left OFFICE VISIT Nilo Arzola NP [facility] answering service agent Clinic 018 2:49PM 3:28PM Assessment [use For S.o.a.p. Note Free Text] OFFICE VISIT Nilo Arzola NP [facility] answering service agent Clinic 018 04/20/2018 1:15PM 1:39PM Assessment [use For S.o.a.p. Note Free Text] PHONE CALL Nilo Arzola NP 018 04/20/2018 3:51PM 04/20/2018 11:59PM OFFICE VISIT Nilo Arzola NP [facility] answering service agent Clinic 018 1:05PM 1:41PM Assessment [use For S.o.a.p. Note Free Text] NEW PATIENT Nilo Arzola NP [facility] answering service agent Clinic 016 1:06PM 1:45PM Assessment [use For S.o.a.p. Note Free Text] [Patient Encounter] Keiry Tan MD 016 9:48AM 11:59PM Insurance Includes: Active Insurance Policies Plan Name Member ID Group # Subscriber Relationship Effect zoey Dates 1 - Medicare [facility] Claim [id number] Kassandra Park Self 10/02/2012 - Unknown 2 - for Life [id number] Brandyn Park Jr. Clinical Notes Includes: Signed Clinical Notes starting from 10/19/2022 No Clinical Notes Recorded
--- OUTSIDE RECORDS SUMMARY | 2024-12-22 20:48 | XMS_ITS | Continuity of Care Document ---
Author Organization [facility] Address [address] [place] [address] Phone Care Team Providers Care Rv Repairer Name Role Phone Austin Sanches MD Unavailable Unavailable Allergies, Adverse Reactions, Alerts Substance Reaction Status Criticality dimenhydrinate Active No Informatio n naproxen Active No Information codeine Active No Information tramadol Active No Information Medications Medication Instructions Dosage Effective Dates (start - stop) Status Comments levothyroxine 88 mcg tablet 1 tablet by Oral route 1 time per day - Active levothyroxine 1 tablet by Oral route 1 time per day90 tab(s)3 omeprazole 20 mg capsule,delayed release 1 Capsule by Oral route 1 time per day - Active omeprazole 1 Capsule by Oral route 1 time per day90 cap(s)1 Mobic 15 mg tablet 1 tablet by Oral route 1 time per day - Active Mobic 1 tablet b y Oral route 1 time per day30 Tablet2 Premarin 0.625 mg tablet take 1 tablet (0.625 mg) by oral route once daily - Active Premarintake 1 tablet (0.625 mg) by oral route once daily90 tablet(s)1 Neurontin 300 mg capsule take 1 capsule by Oral route 1 time per day - Active Neurontintake 1 capsule by Oral route 1 time per day30 tab(s)2 Advance Directives Directive Yes / No Effective Date File Name No Information Encounters Encounter Description Practice Location Reason(s) For Visit Diagnoses Date Provider Providers Copied on Encounter [facility], [address], [place], [place], [id number] , [place] tel:[phone] [facility] Historical Location No Information 8 Myron Avila. [address], [place], [place], [id number], [place]. tel: [facility], [address], [place], [id number] , [place] tel: [phone] [facility] Historical Location No Information 8 Sanches [place]. [address], [place], [place], [id number], [place]. tel: [facility], [address], [place], [id number] , [place] tel: [phone] [facility] Historical Location Vitamin D deficiency, unspecified ICD10 8 No Information [facility], [address], [place], [id number] , [place] tel: [phone] [facility] Historical Location Lumbago with sciatica, unspecified side ICD10 7 No Information [facility], [address], [place], [id number] , [place] tel: [phone] [facility] Historical Location No Information 7 No Information [facility], [address], [place], [id number] , [place] tel: [phone] [facility] Historical Location No Information 7 Sanches [place]. [address], [place], [place], [id number], [place]. tel: [facility], [address], [place], [id number] , [place] tel: [phone] [facility] Historical Location Other specified disorders of urinary system ICD10 7 No Information [facility], [address], [place], [id number] , [place] tel: [phone] [facility] Historical Location No Information 7 Sanches [place]. [address], [place], [place], [id number], [place]. tel: [facility], [address], [place], [id number] , [place] tel: [phone] [facility] Historical Location Unspecified mononeuropathy of unspecified lower limb ICD10 7 No Information [facility], [address], [place], [id number] , [place] tel: [phone] [facility] Historical Location Essential (primary) hypertension [id number], unspecified ICD10 6 No Information [facility], [address], [place], [id number] , [place] tel: [phone] [facility] Historical Location Pain in unspecified hip ICD10 6 No Information [facility], [address], [place], [id number] , [place] tel: [phone] [facility] Historical Location Hypothyroidism, unspecified [id number] phageal reflux disease without esophagitis WJO74G14.2_BODY MASS INDEX (BMI) 20-29, ADULT 5 No Information [facility], [address], [place], [address] , [place] tel: [phone] [facility] Historical Location Z68.3_BODY MASS INDEX (BMI) 30-39, ADULTOth symptoms and signs involving the circ and resp systems [id number] specified respiratory disorders [id number] d asthma, uncomplicated ICD10 5 No Information Family History Family Member Type Diagnosis Age At Onset No Information Immunizations Vaccine Date Status Comments Pneumococcal administered Note: Given at [facility] per [facility] ; Source: New Immunization Record Influenza administered Note: Given at [facility] per [facility] ; Source: New Immunization Record Influenza administered Note: Given by [facility] per [facility] ; Source: New Immunization Record Payers Payer name Insurance type Covered alliance party ID Authoriza tion(s) No Information Social History Type Description Quantity Date Captured Comments Sex Female Smoking Status No Information Chief Complaint And Reason For Visit No Information Reason For Referral Reason For Referral No Information History Of Present Illness Encounter Date Complaint History Of Prese nt Illness No Information Functional Status Date Functional Assessmen t No Information Instructions Date Instruction Additional Infor mation No Information Assessments Type Assessment Date No Information Patient Care Teams Name Effective Dates (start - stop) Status Members No Information
--- OUTSIDE RECORDS SUMMARY | 2024-12-22 20:48 | XMS_ITS | Clinical Summary ---
Author Organization [facility] Address [address] [place] [address] Phone Care Team Providers Care Sheriff'S Officer Name Role Phone Travis YAP, Andreas Treadwell Primary Care Provider [phone] Reason for Visit and Chief Complaint [Patient Encounter] Problems Includes: Problems addressed during this encounter and other active Problems All Visits Onset Date Resolved Date Provider Condition S tatus Radiculopathy 05/17/2020 DIGNA Sánchez DO Active Last Documented On 05/17/2020 3:24PM ; [facility] Note: Unchanged Adhesive Capsulitis of Shoulder Left 01/31/2020 DIGNA Sánchez DO Active Last Documented On 01/31/2020 2:04PM ; [facility] Note: Unchanged Aftercare Orthopedic 01/31/2020 DIGNA Sánchez DO Active Last Documented On 01/31/2020 2:04PM ; [facility] Note: Unchanged Complex Regional Pain Syndrome Type I Upper Limb Left 01/31/2020 DIGNA Sánchez DO Active Last Documented On 01/31/2020 2:04PM ; [facility] Note: Unchanged Contusion with Intact Skin Surface - Hand Left 10/18/2019 DIGNA Sánchez DO Active Last Documented On 10/18/2019 10:47AM ; [facility] Note: Unchanged Patient Communication Requirements 05/28/2016 DIGNA Sánchez DO Active Last Documented On 12/25/2020 2:42PM ; [facility] Note: Stable - none Plan of Treatment Pending Tests Order Diagnosis Results Due Ordering P rovider Radiology - CT Scan Extremity Upper Left w/o contrast Oth intartic fracture of lower end of left radius, init 10/18/19 DIGNA Sánchez DO Last Documented On 9 10:45AM ; [facility] Assessments Includes: Assessments from this encounter No Assessments Recorded Medical Equipment - Implanted Devices Includes: Current Devices No Medical Equipment Recorded Medications Includes: Medications discussed during this encounter and other current Medications Discontinued / Stopped on this date DIGNA Sánchez DO on 05/17/2020 Gabapentin 100 MG Oral Capsule Provider: DIGNA Sánchez DO Diagnosis: Complex regional pain syndrome I of left upper limb Last Documented On 0 10:03AM By Hailey Leroy CMA ; [facility] Current Medications (continue as prescribed) Ibuprofen 800 MG Oral Tablet 06/21/2020 Provider: DIGNA Sánchez DO Diagnosis: 2 to 3 times per day. Last Documented On 0 11:03AM By Spencer Salazar DO ; [facility] Premarin 0.625 MG Oral Tablet 10/18/2019 Provider: Diagnosis: po Last Documented On 9 10:02AM By Donna Barnett LPN ; [facility] Omeprazole 20 MG Capsule Delayed Release 05/28/2016 Provider: Diagnosis: by oral route Last Documented On 6 1:24PM By Selena Haskins CMA ; [facility] Synthroid 88 MCG Tablet 05/28/2016 Provider: Diagnosis: by oral route Last Documented On 6 1:24PM By Selena Haskins CMA ; [facility] Past Medications on file Gabapentin 100 MG Oral Capsule 01/26/2020 - 01/31/2020 Provider: DIGNA Levine Diagnosis: Take 2 caps po qam, 2 po at 5pm, 1 po QHS Last Documented On 0 11:39AM By Penny Shi LPN ; [facility] Valium 5 MG Oral Tablet 12/15/2019 - 12/25/2019 Provid er: Elnea Barraza PA-C Diagnosis: 1 tab po hs prn arm spasm/ pain Last Documented On 0 2:51PM By Elena Barraza PA-C ; [facility] Bactrim DS 800-160 MG Oral Tablet 12/09/2019 - 12/16/2019 Provider: Manuel Strickland MD Diagnosis: Cellulitis of le ft upper limb Take 1 tablet by mouth every 12 hrs Last Documented On 0 11:29AM By Manuel Strickland MD ; [facility] Keflex 500 MG Oral Capsule 11/17/2019 - 11/24/2019 Pro vider: Elena Barraza PA-C Diagnosis: 1 tab po qid x 7 days Last Documented On 0 3:06PM By Elena Barraza PA-C ; [facility] Keflex 500 MG Oral Capsule 11/10/2019 - 11/14/2019 Pro vider: FAHAD Sánchez DOAO Diagnosis: 1 cap po three times a day until gone Last Documented On 0 2:20PM By Donna Barnett LPN ; [facility] Premarin 0.625MG Oral Tablet 05/03/2018 - 01/28/2019 P denader: Melina Arzola NP Diagnosis: TAKE 1 TABLET DAILY Last Documented On 8 3:57PM By Melina WAY ; [facility] Premarin 0.625 MG Tablet 05/28/2016 - 11/24/2016 Provi nathan: Melina Arzola NP Diagnosis: daily by oral route Last Documented On 6 3:10PM By Melina WAY ; [facility] Medications Administered Includes: Administered Medications from this encounter No Administered Medications Recorded Results Includes: Results discussed during this encounter No Results Recorded For Specified Dates History of Present Illness Includes: History of Present Illness from this encounter No History of Present Illness Recorded Social History Description Last Updated Smoking status : Never smoker 12/09/2019 Last Documented On 0 9:25AM ; [facility] Currently 10/18/2019 Last Documented On 0 9:25AM ; [facility] ~Retired ~Seldom alcohol use. ~D enies any tobacco use 05/28/2016 Last Documented On 0 9:25AM ; [facility] Sexually active 05/28/2016 Last Documented On 0 9:25AM ; [facility] Alcohol use seldom 05/28/2016 Last Documented On 0 9:25AM ; [facility] Caffeine use 05/28/2016 Last Documented On 0 9:25AM ; [facility] Exercising regularly 05/28/2016 Last Documented On 0 9:25AM ; [facility] Not using drugs 05/28/2016 Last Documented On 0 9:25AM ; [facility] Retired 05/28/2016 Last Documented On 0 9:25AM ; [facility] Procedures and Surgical History Surgical History Last Updated History of cholecystectomy 10/18/2019 Last Documented On 0 9:25AM ; [facility] Surgical / procedural histor y tonsillectomy, hysterectomy, ooporectomy, choleycystectomy, colonoscopy, double mastectomy, thyroidectomy, bladder sling 05/28/2016 Last Documented On 0 9:25AM ; [facility] History of hemorrhoidectomy 05/28/2016 Last Documented On 0 9:25AM ; [facility] History of hysterectomy 05/28/2016 Last Documented On 0 9:25AM ; [facility] History of oophorectomy 05/28/2016 Last Documented On 0 9:25AM ; [facility] History of tonsillectomy 05/28/2016 Last Documented On 0 9:25AM ; [facility] Medical History Includes: Medical History addressed during this encounter Description Last Updated Other surgery: bilateral mas tectomy / thyroidectomy ~Left wrist pinning 10-24-19 11/03/2019 Last Documented On 0 9:25AM ; [facility] History of GERD 10/18/2019 Last Documented On 0 9:25AM ; [facility] History of menopause 04/20/2018 Last Documented On 0 9:25AM ; [facility] asthma, hemorrhoids, hypoglycemia, measl es, mumps, tumor on thyroid 05/28/2016 Last Documented On 0 9:25AM ; [facility] 2 05/28/2016 Last Documented On 0 9:25AM ; [facility] Para 2 05/28/2016 Last Documented On 0 9:25AM ; [facility] History of complete colonoscopy 2015 Last Documented On 0 9:25AM ; [facility] History of asthma 05/28/2016 Last Documented On 0 9:25AM ; [facility] History of cholecystitis 05/28/2016 Last Documented On 0 9:25AM ; [facility] History of hemorrhoids 05/28/2016 Last Documented On 0 9:25AM ; [facility] History of hypoglycemia 1989 05/28/2016 Last Documented On 0 9:25AM ; [facility] History of hypotension with Last Documented On 0 9:25AM ; [facility] History of measles (rubeola) 05/28/2016 Last Documented On 0 9:25AM ; [facility] History of mumps 05/28/2016 Last Documented On 0 9:25AM ; [facility] History of streptococcal sore throat Last Documented On 0 9:25AM ; [facility] History of urinary tract infection 05/28 Last Documented On 0 9:25AM ; [facility] History of varicella 05/28/2016 Last Documented On 0 9:25AM ; [facility] Thyroid disease 05/28/2016 Last Documented On 0 9:25AM ; [facility] Family History Includes: Family History addressed during this encounter Description Last Updated 3 children 10/18/2019 Last Documented On 0 9:25AM ; [facility] father: , brain canc er, colon cancer ~Mother: history of ovarian cancer ~sister: melanoma 05/28/2016 Last Documented On 0 9:25AM ; [facility] Family history of malignant neoplasm of large intestine dad 05/28/2016 Last Documented On 0 9:25AM ; [facility] Family history of malignant neoplasm of the ovary Mom 05/28/2016 Last Documented On 0 9:25AM ; [facility] Review of Systems Includes: Review of Systems [...] Active Last Documented On 1 2:45PM ; [facility] EC-Naproxen Allergy 05/17/2020 Active Last Documented On 1 2:45PM ; [facility] Dramamine Allergy Hives / Urticaria 06/21/2018 A ctive Last Documented On 1 2:45PM ; [facility] Codeine and Related Allergy Vomiting 06/21/2018 Active Last Documented On 1 2:45PM ; [facility] Encounters Encounter Provider Location Date Check-In Time Check-Out Time Diagnosis [Patient Encounter] Spencer Perez DIGNA Salazar DO 05/24/2020 10:02AM 11:59PM Insurance Includes: Active Insurance Policies Plan Name Member ID Group # Subscriber Relationship Effect zoey Dates 1 - Medicare Rhc Claim [id number] Kassandra Park Self 10/02/2012 - Unknown 2 - for Life [id number] Brandyn Park Jr. Clinical Notes Includes: Clinical Notes from this encounter No Clinical Notes Recorded
--- OUTSIDE RECORDS SUMMARY | 2024-12-22 20:48 | XMS_ITS ---
Care Plan - [facility] Created on: December 22, 2024 ZuleykamonicayoselynKassandra Blair : 1945 Sex: Female Author Organization [facility] Address [address] [place] [address] Phone Care Team Providers Care Surveyor Geodetic Name Role Phone Travis YAP, Andreas Treadwell Primary Care Provider [phone]
--- OUTSIDE RECORDS SUMMARY | 2024-12-22 20:48 | XMS_ITS | Clinical Summary ---
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 Name Role Phone Andreas Robles MD Primary Care Provider [phone] Reason for Visit and Chief Complaint The Chief Complaint is: patient here for left wrist pain Problems Includes: Problems addressed during this encounter and other active Problems Current Visit Onset Date Resolved Date Provider Danita topete Status Complex Regional Pain Syndrome Type I Upper Limb Left 01/31/2020 DIGNA Sánchez DO Active Last Documented On 01/31/2020 2:04PM ; [facility] Note: Unchanged Past Visits Onset Date Resolved Date Provider Condition Status Radiculopathy 05/17/2020 DIGNA Sánchez DO Active Last [...] Note: Unchanged Patient Communication Requirements 05/28/2016 DIGNA Sánchze DO Active Last Documented On 12/25/2020 2:42PM ; [facility] Note: Stable - none Plan of Treatment - Goals discussed - Last Documented On 12/25/2020 3:56PM ; [facility] - Options discussed - Last Documented On 12/25/2020 3:56PM ; [facility] - Physical therapy service - Last Documented On 12/25/2020 3:56PM ; [facility] - Follow-up visit - Last Documented On 12/25/2020 3:56PM ; [facility] Begin physical therapy for left hand/wrist pain, trial voltaren gel. recheck prn. - Last Documented On 12/25/2020 3:56PM ; [facility] Pending Tests Order Diagnosis Results Due Ordering P rovider Radiology - CT Scan Extremity Upper Left w/o contrast Oth intartic fracture of lower end of left radius, init 10/18/19 DIGNA Sánchez DO Last Documented On 9 10:45AM ; [facility] Assessments Includes: Assessments from this encounter Findings - Localized primary osteoarthritis of carpometacarpal joint of left thumb - Last Documented On 12/25/2020 3:56PM ; [facility] - Localized osteoarthritis of left hand - Last Documented On 12/25/2020 3:56PM ; [facility] - Arthralgia of left hand - Last Documented On 12/25/2020 3:56PM ; [facility] - Complex regional pain syndrome type I of the left upper limb - Last Documented On 12/25/2020 3:56PM ; [facility] Medical Equipment - Implanted Devices Includes: Current Devices No Medical Equipment Recorded Medications Includes: Medications discussed during this encounter and other current Medications Discontinued / Stopped on this date DIGNA Sánchez DO on 05/31/2020 Gabapentin 100 MG Oral Capsule Provider: DIGNA Sánchez DO Diagnosis: Last Documented On 1 2:46PM By Hailey Leroy CMA ; [facility] Tablet 12/15/2019 - 12/25/2019 Provid er: Elena Barraza PA-C Diagnosis: 1 tab po hs [...] Oral Capsule 11/10/2019 - 11/14/2019 Pro vider: DIGNA Sánchez DO Diagnosis: 1 cap po three times a day until gone Last Documented On 0 2:20PM By Donna Barnett LPN ; [facility] Premarin 0.625MG Oral Tablet 05/03/2018 - 01/28/2019 Yessi tompkins: Melina Arzola NP Diagnosis: TAKE 1 TABLET DAILY Last Documented On 8 3:57PM By Melina WAY ; [facility] Premarin 0.625 MG Tablet 05/28/2016 - 11/24/2016 Provi nathan: Melina Arzola NP Diagnosis: daily by oral route Last Documented On 6 3:10PM By Melina WAY ; [facility] Medications Administered Includes: Administered Medications from this encounter No Administered Medications Recorded Vital Signs Includes: Vital Signs from this encounter Vital Name 12/25/2020 02:42P Blood Pressure Sitting R 124/76 BP Cuff Size Regular Pulse Rate-Sitting (bpm) 76 Respiration Rate (breaths/min) 18 Temp-Tympanic (F) 96.2 Height (in) 65.75 Weight (lb) 211 Body Mass Index (kg/m2) 34.3 Body Surface Area (m2) 2.0 Pain Level 3 Last Documented: On 12/25/2020 2:47PM ; [facility] Results Includes: Results discussed during this encounter No Results Recorded For Specified Dates History of Present Illness Includes: History of Present Illness from this encounter TAMEKA Park is a 75 year old female. - Allergy list reviewed - Problem list reviewed - Medication reconciliation performed - Pain in the left finger joints restriction in the PIP joints of all fingers - Left hand pain - At the base of the thumb of the left hand - Wrist joint pain when actively moved - Left hand soft tissue swelling Here for left wrist pain. has a history of reflex regional pain syndrome. Social History Description Last Updated Smoking status : Never smoker 12/09/2019 Last Documented On 1 2:42PM ; [facility] Currently 10/18/2019 Last Documented On 1 2:42PM ; [facility] ~Retired ~Seldom alcohol use. ~D enies any tobacco use 05/28/2016 Last Documented On 1 2:42PM ; [facility] Sexually active 05/28/2016 Last Documented On 1 2:42PM ; [facility] Alcohol use seldom 05/28/2016 Last Documented On 1 2:42PM ; [facility] Caffeine use 05/28/2016 Last Documented On 1 2:42PM ; [facility] Exercising regularly 05/28/2016 Last Documented On 1 2:42PM ; [facility] Not using drugs 05/28/2016 Last Documented On 1 2:42PM ; [facility] Retired 05/28/2016 Last Documented On 1 2:42PM ; [facility] Procedures and Surgical History Includes: Procedures from this encounter Procedures Code Diagnosis Performing Provider Service Location Service Date Xray Wrist Complete Min Three Views (LEFT SIDE FOR PROCEDURES DONE ON LEFT SIDE OF BODY, X ray taken using film) 00052 Primary osteoarthritis, left hand [facility]2020 Last Documented On 1 4:10AM ; [facility] elevation of extremity Last Documented On 1 3:31PM ; [facility] rest the extremity Last Documented On 1 3:31PM ; [facility] x-ray of wrist, complete - t hree or more views were performed left wrist /hand shows a healed distal radius Fx, there is mild DJD of the radicarpal joint and 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 IMP: DJD of the left thumb CMC and DJD of the wrist and hand as noted 31338 Last Documented On 1 3:50PM ; [facility] Surgical History Last Updated History of cholecystectomy 10/18/2019 Last Documented On 1 2:42PM ; [facility] Surgical / procedural histor y tonsillectomy, hysterectomy, ooporectomy, choleycystectomy, colonoscopy, double mastectomy, thyroidectomy, bladder sling 05/28/2016 Last Documented On 1 2:42PM ; [facility] History of hemorrhoidectomy 05/28/2016 Last Documented On 1 2:42PM ; [facility] History of hysterectomy 05/28/2016 Last Documented On 1 2:42PM ; [facility] History of oophorectomy 05/28/2016 Last Documented On 1 2:42PM ; [facility] History of tonsillectomy 05/28/2016 Last Documented On 1 2:42PM ; [facility] Medical History Includes: Medical History addressed during this encounter Description Last Updated Other surgery: bilateral mas tectomy / thyroidectomy ~Left wrist pinning 10-24-19 11/03/2019 Last Documented On 1 2:42PM ; [facility] History of GERD 10/18/2019 Last Documented On 1 2:42PM ; [facility] History of menopause 04/20/2018 Last Documented On 1 2:42PM ; [facility] asthma, hemorrhoids, hypoglycemia, measl es, mumps, tumor on thyroid 05/28/2016 Last Documented On 1 2:42PM ; [facility] 2 05/28/2016 Last Documented On 1 2:42PM ; [facility] Para 2 05/28/2016 Last Documented On 1 2:42PM ; [facility] History of complete colonoscopy 2015 Last Documented On 1 2:42PM ; [facility] History of asthma 05/28/2016 Last Documented On 1 2:42PM ; [facility] History of cholecystitis 05/28/2016 Last Documented On 1 2:42PM ; [facility] History of hemorrhoids 05/28/2016 Last Documented On 1 2:42PM ; [facility] History of hypoglycemia 1989 05/28/2016 Last Documented On 1 2:42PM ; [facility] History of hypotension with Last Documented On 1 2:42PM ; [facility] History of measles (rubeola) 05/28/2016 Last Documented On 1 2:42PM ; [facility] History of mumps 05/28/2016 Last Documented On 1 2:42PM ; [facility] History of streptococcal sore throat Last Documented On 1 2:42PM ; [facility] History of urinary tract infection 05/28 Last Documented On 1 2:42PM ; [facility] History of varicella 05/28/2016 Last Documented On 1 2:42PM ; [facility] Thyroid disease 05/28/2016 Last Documented On 1 2:42PM ; [facility] Family History Includes: Family History addressed during this encounter Description Last Updated 3 children 10/18/2019 Last Documented On 1 2:42PM ; [facility] father: , brain canc er, colon cancer ~Mother: history of ovarian cancer ~sister: melanoma 05/28/2016 Last Documented On 1 2:42PM ; [facility] Family history of malignant neoplasm of large intestine dad 05/28/2016 Last Documented On 1 2:42PM ; [facility] Family history of malignant neoplasm of the ovary Mom 05/28/2016 Last Documented On 1 2:42PM ; [facility] Review of Systems Includes: Review of Systems from this encounter Systemic: Not feeling poorly (malaise). No fever and no chills. Night sweats hot flashes. No recent weight change. No night sweats. Head: No headache, no facial pain, and no sinus pain. Neck: No neck pain, no neck stiffness, and no lump or swelling in the neck. Eyes: Eye symptoms dry eye. No vision problems. Itching of the eyes. No eye pain. No photophobia. Otolaryngeal: No hearing loss, no earache, no tinnitus, no nasal discharge, no epistaxis, no hoarseness, no sore throat, and no bleeding gums. No mouth sores. Breasts: No breast lump, no nipple discharge, and no pain in breast. Cardiovascular: No cardiovascular symptoms. Pulmonary: No dyspnea, no cough, no hemoptysis, and no wheezing. Gastrointestinal: Normal appetite, no dysphagia, and no heartburn. No nausea, no vomiting, no abdominal pain, and no melena. No diarrhea and no constipation. Genitourinary: No hematuria and no increase in urinary frequency. No dysuria. No genital lesion. Endocrine: No polydipsia, no excessive sweating, and libido has not changed. Hematologic: No easy bleeding and no tendency for easy bruising. Musculoskeletal: Muscle aches, pain localized to one or more joints, and joint stiffness localized to one or more joints. Neurological: No dizziness, no vertigo, no fainting, no motor disturbances, and no sensory disturbances. Psychological: No anxiety and no depression. Sleep disturbances. Skin: No pruritus. No skin lesions and no rash. Mental Status Includes: Mental Status from this encounter Description No anxiety Functional Status Includes: Functional Status from this encounter No Functional Status Recorded Physical Exam Includes: Physical Exam from this encounter Allergies Includes: Active Allergies Substance Type Reaction [...] Location Date Check-In Time Check-Out Time Diagnosis REVISIT DIGNA Sánchez DO [facility] 12/25/19 21 2:34PM 3:50PM Complex Regional Pain Syndrome Type I Upper Limb Left,Osteoarthriti s Localized Hand Left,Osteoarthriti s Localized Primary Carpometacarpal Joint Left Thumb,Arthralgia - Hand Left Insurance Includes: Active Insurance Policies Plan Name Member ID Group # Subscriber Relationship Effect zoey Dates 1 - Medicare Rhc Claim [id number] Kassandra Pinto Vivian Self 10/02/2012 - Unknown 2 - for Life [id number] Brandyn Park Jr. Clinical Notes Includes: Clinical Notes from this encounter No Clinical Notes Recorded
--- OUTSIDE RECORDS SUMMARY | 2024-12-22 20:48 | XMS_ITS | Clinical Summary ---
Author Organization [facility] Address [address] [place] [address] Phone Care Team Providers Care Csm Consultant Name Role Phone Travis YAP, Andreas Treadwell Primary Care Provider [phone] Reason for Visit and Chief Complaint visit for: left wrist pain and elbow, visit for: left shoulder pain - The Chief Complaint is: Patient here for BUE EMG results ~OT tells Kassandra she is at plateau Problems Includes: Problems addressed during this encounter and other active Problems Current Visit Onset Date Resolved Date Provider Conditio n Status Radiculopathy 05/17/2020 DIGNA Sánchez DO Active Last Documented On 05/17/2020 3:24PM ; [facility] Note: Unchanged Adhesive Capsulitis of Shoulder Left 01/31/2020 DIGNA Sánchez DO Active Last Documented On 01/31/2020 2:04PM ; [facility] Note: Unchanged Complex Regional Pain Syndrome Type I Upper Limb Left 01/31/2020 DIGNA Sánchez DO Active Last Documented On 01/31/2020 2:04PM ; [facility] Note: Unchanged Past Visits Onset Date Resolved Date Provider Condition Status Aftercare Orthopedic 01/31/2020 DIGNA Sánchez DO Active Last Documented On 01/31/2020 2:04PM ; [facility] Note: Unchanged Contusion with Intact Skin Surface - Hand Left 10/18/2019 DIGNA Sánchez DO Active Last Documented On 10/18/2019 10:47AM ; [facility] Note: Unchanged Patient Communication Requirements 05/28/2016 Spencer S Habryl DO, FAOAO Active Last Documented On 12/25/2020 2:42PM ; [facility] Note: Stable - none Plan of Treatment - Goals discussed - Last Documented On 08/23/2020 2:08PM ; [facility] - Options discussed - Last Documented On 08/23/2020 2:08PM ; [facility] - Follow-up visit - Last Documented On 08/23/2020 2:08PM ; [facility] Continue OT and PT recheck prn. She may call for renewal of PT slips. - Last Documented On 08/23/2020 2:08PM ; [facility] Pending Tests Order Diagnosis Results Due Ordering P rovider Radiology - CT Scan Extremity Upper Left w/o contrast Oth intartic fracture of lower end of left radius, init 10/18/19 FAHAD Sánchez DOAO Last Documented On 9 10:45AM ; [facility] Education and Decision Aids were provided during visit for: Ibuprofen 800 MG Oral Tablet (Medication) Last Documented On 0 2:21PM ; [facility] Patient Communication Requir ements (Problem) Last Documented On 0 2:21PM ; [facility] Assessments Includes: Assessments from this encounter Findings - Adhesive capsulitis of left shoulder - Last Documented On 08/23/2020 2:08PM ; [facility] - Radiculopathy -UPPER EXTREMITY - Last Documented On 08/23/2020 2:08PM ; [facility] - Complex regional pain syndrome type I of the left upper limb - Last Documented On 08/23/2020 2:08PM ; [facility] Instructions Includes: Instructions from this encounter Education and Decision Aids were provided during visit for: Ibuprofen 800 MG Oral Tablet (Medication) Last Documented On 0 2:21PM ; [facility] Patient Communication Requir ements (Problem) Last Documented On 0 2:21PM ; [facility] Medical Equipment - Implanted Devices Includes: Current Devices No Medical Equipment Recorded Medications Includes: Medications discussed during this encounter and other current Medications Discontinued / Stopped on this date on 05/17/2020 Ibuprofen 800 MG Oral Tablet Provider: Diagnosis: Last Documented On 0 1:17PM By Hailey Leroy CMA ; [facility] Current Medications (continue as prescribed) Ibuprofen 800 MG Oral Tablet 06/21/2020 Provider: DIGNA Sánchez DO Diagnosis: 2 to 3 times per day. Last Documented On 0 11:03AM By Spencer Salazar DO ; [facility] Premarin 0.625 MG Oral Tablet 10/18/2019 Provider: Diagnosis: po Last Documented On 9 10:02AM By Donna Barnett LPN ; [facility] Omeprazole 20 MG Capsule Delayed Release 05/28/2016 Provider: Diagnosis: by oral route Last Documented On 6 1:24PM By Selena Haskins CMA ; [facility] Synthroid 88 MCG Tablet 05/28/2016 Provider: Diagnosis: by oral route Last Documented On 6 1:24PM By Selena Haskins CMA ; [facility] Past Medications on file Gabapentin 100 MG Oral Capsule 01/26/2020 - 01/31/2020 Provider: DIGNA Levine Diagnosis: Take 2 caps po qam, 2 po at 5pm, 1 po QHS Last Documented On 0 11:39AM By Penny Shi LPN ; [facility] Valium 5 MG Oral Tablet 12/15/2019 - 12/25/2019 Provid er: Elena Barraza PA-C Diagnosis: 1 tab po hs prn arm spasm/ pain Last Documented On 0 2:51PM By Elena Barraza PA-C ; [facility] Bactrim DS 800-160 MG Oral Tablet 12/09/2019 - 12/16/2019 Provider: Manuel Strickland MD Diagnosis: Cellulitis of le ft upper limb Take 1 tablet by mouth every 12 hrs Last Documented On 0 11:29AM By Manuel Strickland MD ; [facility] Keflex 500 MG Oral Capsule 11/17/2019 - 11/24/2019 Pro vider: Elena Barraza PA-C Diagnosis: 1 tab po qid x 7 days Last Documented On 0 3:06PM By Elena Barraza PA-C ; [facility] Keflex 500 MG Oral Capsule 11/10/2019 - 11/14/2019 Pro vider: Spencer Salazar DO, FAOAO Diagnosis: 1 cap po three times a day until gone Last Documented On 0 2:20PM By Donna Barnett LPN ; [facility] Premarin 0.625MG Oral Tablet 05/03/2018 - 01/28/2019 P rovider: Melina Arzola NP Diagnosis: TAKE 1 TABLET DAILY Last Documented On 8 3:57PM By Melina WAY ; [facility] Premarin 0.625 MG Tablet 05/28/2016 - 11/24/2016 Provi nathan: Melina Arzola NP Diagnosis: daily by oral route Last Documented On 6 3:10PM By Melina WAY ; [facility] Medications Administered Includes: Administered Medications from this encounter No Administered Medications Recorded Vital Signs Includes: Vital Signs from this encounter Vital Name 08/23/2020 01:14P Blood Pressure Sitting R 130/72 BP Cuff Size Regular Pulse Rate-Sitting (bpm) 72 Respiration Rate (breaths/min) 18 Temp-Tympanic (F) 96.2 Height (in) 65.75 Weight (lb) 216 Body Mass Index (kg/m2) 35.1 Body Surface Area (m2) 2.1 Pain Level 0 Last Documented: On 08/23/2020 1:19PM ; [facility] Results Includes: Results discussed during this encounter No Results Recorded For Specified Dates History of Present Illness Includes: History of Present Illness from this encounter HPI Kassandra Park is a 74 year old female. - Allergy list reviewed - Problem list reviewed - Medication reconciliation performed - Feeling as well as can be expected - Symptoms controlled - No fever - No chills - Pain in the left finger joints - Stiffness of joints of left fingers - Left hand pain - At the base of the thumb of the left hand - Swelling of the joints of the hand(s) - Pain in the left wrist joint(s) - Swelling of the left wrist joint - Shoulder joint pain when actively moved - Started suddenly - Started gradually This began after the fall secondary to not moving the extremity - Causes difficulty lying on affected side - Shoulder joint stiffness on the left - Left hand soft tissue swelling - No pain in the left palm - No pain in the left shoulder joint(s) - Sleep disturbances - No numbness - No generalized erythema Patient here for recheck of left wrist, elbow, and shoulder, she has been in OT for wrist after surgery. Patient feels she is doing better, continues with OT . Patient continues gabapentin. She has eliminated her braces because they were causing her pain but uses occasionally . Here for EMG review today. Social History Description Last Updated Smoking status : Never smoker 12/09/2019 Last Documented On 0 1:14PM ; [facility] Currently 10/18/2019 Last Documented On 0 1:14PM ; [facility] ~Retired ~Seldom alcohol use. ~D enies any tobacco use 05/28/2016 Last Documented On 0 1:14PM ; [facility] Sexually active 05/28/2016 Last Documented On 0 1:14PM ; [facility] Alcohol use seldom 05/28/2016 Last Documented On 0 1:14PM ; [facility] Caffeine use 05/28/2016 Last Documented On 0 1:14PM ; [facility] Exercising regularly 05/28/2016 Last Documented On 0 1:14PM ; [facility] Not using drugs 05/28/2016 Last Documented On 0 1:14PM ; [facility] Retired 05/28/2016 Last Documented On 0 1:14PM ; [facility] Procedures and Surgical History Includes: Procedures from this encounter Procedures Code Diagnosis Performing Provider Service L ocation Service Date elevation of extremity Last Documented On 0 2:04PM ; [facility] rest the extremity Last Documented On 0 2:04PM ; [facility] Surgical History Last Updated History of cholecystectomy 10/18/2019 Last Documented On 0 1:14PM ; [facility] Surgical / procedural histor y tonsillectomy, hysterectomy, ooporectomy, choleycystectomy, colonoscopy, double mastectomy, thyroidectomy, bladder sling 05/28/2016 Last Documented On 0 1:14PM ; [facility] History of hemorrhoidectomy 05/28/2016 Last Documented On 0 1:14PM ; [facility] History of hysterectomy 05/28/2016 Last Documented On 0 1:14PM ; [facility] History of oophorectomy 05/28/2016 Last Documented On 0 1:14PM ; [facility] History of tonsillectomy 05/28/2016 Last Documented On 0 1:14PM ; [facility] Medical History Includes: Medical History addressed during this encounter Description Last Updated Other surgery: bilateral mas tectomy / thyroidectomy ~Left wrist pinning 10-24-19 11/03/2019 Last Documented On 0 1:14PM ; [facility] History of GERD 10/18/2019 Last Documented On 0 1:14PM ; [facility] History of menopause 04/20/2018 Last Documented On 0 1:14PM ; [facility] asthma, hemorrhoids, hypoglycemia, measl es, mumps, tumor on thyroid 05/28/2016 Last Documented On 0 1:14PM ; [facility] 2 05/28/2016 Last Documented On 0 1:14PM ; [facility] Para 2 05/28/2016 Last Documented On 0 1:14PM ; [facility] History of complete colonoscopy 2014 Last Documented On 0 1:14PM ; [facility] History of asthma 05/28/2016 Last Documented On 0 1:14PM ; [facility] History of cholecystitis 05/28/2016 Last Documented On 0 1:14PM ; [facility] History of hemorrhoids 05/28/2016 Last Documented On 0 1:14PM ; [facility] History of hypoglycemia 1989 05/28/2016 Last Documented On 0 1:14PM ; [facility] History of hypotension with Last Documented On 0 1:14PM ; [facility] History of measles (rubeola) 05/28/2016 Last Documented On 0 1:14PM ; [facility] History of mumps 05/28/2016 Last Documented On 0 1:14PM ; [facility] History of streptococcal sore throat Last Documented On 0 1:14PM ; [facility] History of urinary tract infection 05/28 Last Documented On 0 1:14PM ; [facility] History of varicella 05/28/2016 Last Documented On 0 1:14PM ; [facility] Thyroid disease 05/28/2016 Last Documented On 0 1:14PM ; [facility] Family History Includes: Family History addressed during this encounter Description Last Updated 3 children 10/18/2019 Last Documented On 0 1:14PM ; [facility] father: , brain canc er, colon cancer ~Mother: history of ovarian cancer ~sister: melanoma 05/28/2016 Last Documented On 0 1:14PM ; [facility] Family history of malignant neoplasm of large intestine dad 05/28/2016 Last Documented On 0 1:14PM ; [facility] Family history of malignant neoplasm of the ovary Mom 05/28/2016 Last Documented On 0 1:14PM ; [facility] Review of Systems Includes: Review of [...] Active Last Documented On 1 2:45PM ; [facility] EC-Naproxen Allergy 05/17/2020 Active Last Documented On 1 2:45PM ; [facility] Dramamine Allergy Hives / Urticaria 06/21/2018 A ctive Last Documented On 1 2:45PM ; [facility] Codeine and Related Allergy Vomiting 06/21/2018 Active Last Documented On 1 2:45PM ; [facility] Encounters Encounter Provider Location Date Check-In Time Check- Out Time Diagnosis REVISIT Spencer Salazar DO, [facility]:01PM 2:08PM Complex Regional Pain Syndrome Type I Upper Limb Left,Radiculop athy,Adhesive Capsulitis of Shoulder Left Insurance Includes: Active Insurance Policies Plan Name Member ID Group # Subscriber Relationship Effect zoey Dates 1 - Medicare Rhc Claim [id number] Kassandra Park Self 10/02/2012 - Unknown 2 - for Life [id number] Brandyn Park Jr. Clinical Notes Includes: Clinical Notes from this encounter No Clinical Notes Recorded
--- OUTSIDE RECORDS SUMMARY | 2024-12-22 20:49 | XMS_ITS | Clinical Summary ---
Author Organization [facility] Address [address] [place] [address] Phone Care Team Providers Care Senior Science Consultant Name Role Phone Travis YAP, Andreas Treadwell Primary Care Provider [phone] Reason for Visit and Chief Complaint visit for: left wrist pain and elbow, visit for: left shoulder pain - The Chief Complaint is: Pt here for recheck of left wrist. Pt did not have EMG done. Pain is present if touched. OT 3 times a week. Pt has had improvements Problems Includes: Problems addressed during this encounter and other active Problems Current Visit Onset Date Resolved Date Provider Conditio n Status Radiculopathy 05/17/2020 DIGNA Sánchez DO Active Last Documented On 05/17/2020 3:24PM ; [facility] Note: Unchanged Adhesive Capsulitis of Shoulder Left 01/31/2020 DIGNA Sánchez DO Active Last Documented On 01/31/2020 2:04PM ; [facility] Note: Unchanged Complex Regional Pain Syndrome Type I Upper Limb Left 01/31/2020 DIGNA Sánchez DO Active Last Documented On 01/31/2020 2:04PM ; [facility] Note: Unchanged Past Visits Onset Date Resolved Date Provider Condition Status Aftercare Orthopedic 01/31/2020 DIGNA Sánchez DO Active Last Documented On 01/31/2020 2:04PM ; [facility] Note: Unchanged Contusion with Intact Skin Surface - Hand Left 10/18/2019 DIGNA Sánchez DO Active Last Documented On 10/18/2019 10:47AM ; [facility] Note: Unchanged Fracture of Radius Distal End Intra-articular 10/18/2019 Unknown DIGNA Sánchez DO Resolved Last Documented On 06/21/2020 10:54AM ; [facility] Note: Resolved Patient Communication Requirements 05/28/2016 DIGNA Sánchez DO Active Last Documented On 12/25/2020 2:42PM ; [facility] Note: Stable - none Plan of Treatment - Goals discussed - Last Documented On 06/21/2020 11:05AM ; [facility] - Options discussed - Last Documented On 06/21/2020 11:05AM ; [facility] - Follow-up visit - Last Documented On 06/21/2020 11:05AM ; [facility] Continue OT and Plan EMG bilateral arms, recheck for tests results . - Last Documented On 06/21/2020 11:05AM ; [facility] Pending Tests Order Diagnosis Results Due Ordering P rovider Radiology - CT Scan Extremity Upper Left w/o contrast Oth intartic fracture of lower end of left radius, init 10/18/19 DIGNA Sáncehz DO Last Documented On 9 10:45AM ; [facility] Assessments Includes: Assessments from this encounter Findings - Adhesive capsulitis of left shoulder - Last Documented On 06/21/2020 11:05AM ; [facility] - Radiculopathy -UPPER EXTREMITY - Last Documented On 06/21/2020 11:05AM ; [facility] - Complex regional pain syndrome type I of the left upper limb - Last Documented On 06/21/2020 11:05AM ; [facility] Medical Equipment - Implanted Devices Includes: Current Devices No Medical Equipment Recorded Medications Includes: Medications discussed during this encounter and other current Medications New / Renewed during this visit DIGNA Sánchez DO on 06/21/2020 Ibuprofen 800 MG Oral Tablet Provider: DIGNA Sánchez DO 90 day supply: 180 tablet, 3 refills Diagnosis: 2 to 3 times per day. Pharmacy: [facility] - [address] [place] [address], [id number] - Last Documented On 0 11:03AM By Spencer Salazar DO ; [facility] Current Medications (continue as prescribed) Premarin 0.625 MG Oral Tablet 10/18/2019 Provider: Diagnosis: po Last Documented On 9 10:02AM By Donna Barnett LPN ; [facility] Omeprazole 20 MG Capsule Delayed Release 05/28/2016 Provider: Diagnosis: by oral route Last Documented On 6 1:24PM By Selena Haskins CMA ; [facility] Synthroid 88 MCG Tablet 05/28/2016 Provider: Diagnosis: by oral route Last Documented On 6 1:24PM By Selena Haskins CMA ; [facility] Past Medications on file Gabapentin 100 MG Oral Capsule 01/26/2020 - 01/31/2020 Provider: DIGNA Levine Diagnosis: Take 2 caps po qam, 2 po at 5pm, 1 po QHS Last Documented On 0 11:39AM By Penny Shi LPN ; [facility] Valium 5 MG Oral Tablet 12/15/2019 - 12/25/2019 Provid er: Elena Barraza PA-C Diagnosis: 1 tab po hs prn arm spasm/ pain Last Documented On 0 2:51PM By Elena Barraza PA-C ; [facility] Bactrim DS 800-160 MG Oral Tablet 12/09/2019 - 12/16/2019 Provider: Manuel Strickland MD Diagnosis: Cellulitis of le ft upper limb Take 1 tablet by mouth every 12 hrs Last Documented On 0 11:29AM By Manuel Strickland MD ; [facility] Keflex 500 MG Oral Capsule 11/17/2019 - 11/24/2019 Pro vider: Elena Barraza PA-C Diagnosis: 1 tab po qid x 7 days Last Documented On 0 3:06PM By Elena Barraza PA-C ; [facility] Keflex 500 MG Oral Capsule 11/10/2019 - 11/14/2019 Pro vider: DIGNA Sánchez DO Diagnosis: 1 cap po three times a day until gone Last Documented On 0 2:20PM By Donna Barnett LPN ; [facility] Premarin 0.625MG Oral Tablet 05/03/2018 - 01/28/2019 Yessi fernandesder: Melina Arzola NP Diagnosis: TAKE 1 TABLET DAILY Last Documented On 8 3:57PM By Melina WAY ; [facility] Premarin 0.625 MG Tablet 05/28/2016 - 11/24/2016 Provi nathan: Melina Arzola NP Diagnosis: daily by oral route Last Documented On 6 3:10PM By Melina WAY ; [facility] Medications Administered Includes: Administered Medications from this encounter No Administered Medications Recorded Vital Signs Includes: Vital Signs from this encounter Vital Name 06/21/2020 10:03A Blood Pressure Sitting L 154/80 BP Cuff Size Regular Pulse Rate-Sitting (bpm) 68 Respiration Rate (breaths/min) 18 Temp-Oral (F) 98.6 Height (in) 65.75 Weight (lb) 219 Body Mass Index (kg/m2) 35.6 Body Surface Area (m2) 2.1 Pain Level 3 Last Documented: On 06/21/2020 10:07A M ; [facility] Results Includes: Results discussed during this encounter No Results Recorded For Specified Dates History of Present Illness Includes: History of Present Illness from this encounter TAMEKA Park is a 74 year old female. [...] causing her pain but uses occasionally . EMG has not been planned yet, waiting for call. Social History Description Last Updated Smoking status : Never smoker 12/09/2019 Last Documented On 0 10:02AM ; [facility] Currently 10/18/2019 Last Documented On 0 10:02AM ; [facility] ~Retired ~Seldom alcohol use. ~D enies any tobacco use 05/28/2016 Last Documented On 0 10:02AM ; [facility] Sexually active 05/28/2016 Last Documented On 0 10:02AM ; [facility] Alcohol use seldom 05/28/2016 Last Documented On 0 10:02AM ; [facility] Caffeine use 05/28/2016 Last Documented On 0 10:02AM ; [facility] Exercising regularly 05/28/2016 Last Documented On 0 10:02AM ; [facility] Not using drugs 05/28/2016 Last Documented On 0 10:02AM ; [facility] Retired 05/28/2016 Last Documented On 0 10:02AM ; [facility] Procedures and Surgical History Surgical History Last Updated History of cholecystectomy 10/18/2019 Last Documented On 0 10:02AM ; [facility] Surgical / procedural histor y tonsillectomy, hysterectomy, ooporectomy, choleycystectomy, colonoscopy, double mastectomy, thyroidectomy, bladder sling 05/28/2016 Last Documented On 0 10:02AM ; [facility] History of hemorrhoidectomy 05/28/2016 Last Documented On 0 10:02AM ; [facility] History of hysterectomy 05/28/2016 Last Documented On 0 10:02AM ; [facility] History of oophorectomy 05/28/2016 Last Documented On 0 10:02AM ; [facility] History of tonsillectomy 05/28/2016 Last Documented On 0 10:02AM ; [facility] Medical History Includes: Medical History addressed during this encounter Description Last Updated Other surgery: bilateral mas tectomy / thyroidectomy ~Left wrist pinning 10-24-19 11/03/2019 Last Documented On 0 10:02AM ; [facility] History of GERD 10/18/2019 Last Documented On 0 10:02AM ; [facility] History of menopause 04/20/2018 Last Documented On 0 10:02AM ; [facility] asthma, hemorrhoids, hypoglycemia, measl es, mumps, tumor on thyroid 05/28/2016 Last Documented On 0 10:02AM ; [facility] 2 05/28/2016 Last Documented On 0 10:02AM ; [facility] Para 2 05/28/2016 Last Documented On 0 10:02AM ; [facility] History of complete colonoscopy 2015 Last Documented On 0 10:02AM ; [facility] History of asthma 05/28/2016 Last Documented On 0 10:02AM ; [facility] History of cholecystitis 05/28/2016 Last Documented On 0 10:02AM ; [facility] History of hemorrhoids 05/28/2016 Last Documented On 0 10:02AM ; [facility] History of hypoglycemia 1989 05/28/2016 Last Documented On 0 10:02AM ; [facility] History of hypotension with Last Documented On 0 10:02AM ; [facility] History of measles (rubeola) 05/28/2016 Last Documented On 0 10:02AM ; [facility] History of mumps 05/28/2016 Last Documented On 0 10:02AM ; [facility] History of streptococcal sore throat Last Documented On 0 10:02AM ; [facility] History of urinary tract infection 05/28 Last Documented On 0 10:02AM ; [facility] History of varicella 05/28/2016 Last Documented On 0 10:02AM ; [facility] Thyroid disease 05/28/2016 Last Documented On 0 10:02AM ; [facility] Family History Includes: Family History addressed during this encounter Description Last Updated 3 children 10/18/2019 Last Documented On 0 10:02AM ; [facility] father: , brain canc er, colon cancer ~Mother: history of ovarian cancer ~sister: melanoma 05/28/2016 Last Documented On 0 10:02AM ; [facility] Family history of malignant neoplasm of large intestine dad 05/28/2016 Last Documented On 0 10:02AM ; [facility] Family history of malignant neoplasm of the ovary Mom 05/28/2016 Last Documented On 0 10:02AM ; [facility] Review of Systems Includes: Review of Systems [...] Active Last Documented On 1 2:45PM ; [facility] EC-Naproxen Allergy 05/17/2020 Active Last Documented On 1 2:45PM ; [facility] Dramamine Allergy Hives / Urticaria 06/21/2018 A ctive Last Documented On 1 2:45PM ; [facility] Codeine and Related Allergy Vomiting 06/21/2018 Active Last Documented On 1 2:45PM ; [facility] Encounters Encounter Provider Location Date Check-In Time Check- Out Time Diagnosis REVISIT Spencer Perez Marie , DIGNA [facility] 0 10:00AM 11:07AM Complex Regional Pain Syndrome Type I Upper Limb Left,Radiculop athy,Adhesive Capsulitis of Shoulder Left Insurance Includes: Active Insurance Policies Plan Name Member ID Group # Subscriber Relationship Effect zoey Dates 1 - Medicare Rhc Claim [id number] Kassandra Park Self 10/02/2012 - Unknown 2 - for Life [id number] Brandyn Park Jr. Clinical Notes Includes: Clinical Notes from this encounter No Clinical Notes Recorded
[2024-12-22] MEDS: levoFLOXacin 500 MG/D5W 100 ML 500 MG/100 ML BAG 100 MG IVPB (20:50)
[2024-12-22] MEDS: OSELTAMIVIR PHOSPHATE 75 MG CAPSULE PO (20:52)
[2024-12-22 20:55] LABS: Alanine Aminotransferase 24 U/L (14-59); Albumin Level 3.3 g/dL (3.4-5.0); Alkaline Phosphatase 92 U/L (46-116); Anion Gap 10 mmol/L (4-12); Aspartate Amino Transferase 25 U/L (15-37); Bilirubin,Total 0.5 mg/dL (0.00-1.00); Blood Urea Nitrogen 19 mg/dL (7-18); Calcium 8.5 mg/dL (8.5-10.1); Carbon Dioxide 28 mmol/L (21-32); Chloride 106 mmol/L (98-108); Estimated CRCL calculation 45 ml/min; Estimated Glomerular Filt Rate 50; Glucose 112 mg/dL (70-99); Osmolality Calculated 301 mOsm/kg (285-295); Potassium 3.9 mmol/L (3.5-5.1); Sodium 144 mmol/L (136-145); Total Protein 6.6 g/dL (6.4-8.2)
[2024-12-22 20:59] LABS: Lactic Acid Reflex 1.4 mmol/L (0.4-2.0)
--- NOTE | 2024-12-22 22:16 | ADMGEN ---
This patient, Kassandra Park, was admitted to 2nd Floor Room 211-1. Patient oriented to hospital policies and general routines including ID bracelet, bed and alarms, visiting hours, pain management, procedures, bathroom and other care routines, personal items, smoking policy, room service/diet, and visiting hours. Information on how to activate the Rapid Response Team has been discussed. Patient encouraged to report perceived risks to care and to ask questions if they do not understand what they are told or what they should do.
[2024-12-22] MEDS: SODIUM CHLORIDE 0.9% IV 1,000 ML 100 ML IV CONT (22:35)
[2024-12-23] VITALS (12 sets, daily range): BP systolic 124–132; BP diastolic 70–74; PULSE 74–98; RESP 20–22; TEMP 37.2–38; O2SAT 90–98
[2024-12-23] MEDS: ACETAMINOPHEN 325 MG TABLET 650 MG PO ×3 (02:45→21:08)
[2024-12-23 08:41] LABS: Basophils Absolute Auto 0.04 K/mm3 (0.00-0.10); Basophils Percent Auto 0.6 % (0.0-1.0); Eosinophils Absolute Auto 0.05 K/mm3 (0.02-0.50); Eosinophils Percent Auto 0.7 % (1.0-6.0); Hematocrit 45.6 % (35.0-42.0); Hemoglobin 13.3 g/dL (11.7-13.8); Immature Granulocyte Absolute 0.02 K/mm3 (0.00-0.00); Immature Granulocyte Percent A 0.3 % (0.0-0.0); Lymphocytes Absolute Auto 0.91 K/mm3 (1.10-4.50); Lymphocytes Percent Auto 13.5 % (18.0-42.0); Mean Corpuscular HGB Conc 29.2 g/dL (32-36); Mean Corpuscular Hemoglobin 29.1 pg (27.0-31.0); Mean Corpuscular Volume 99.8 fL (78.0-102.0); Mean Platelet Volume 9.2 fl (9.2-11.8); Monocytes Absolute Auto 0.41 K/mm3 (0.10-0.90); Monocytes Percent Auto 6.1 % (2.0-11.0); Neutrophils Absolute Auto 5.32 K/mm3 (1.70-7.20); Neutrophils Percent Auto 78.8 % (50.0-70.0); Platelet Count Result 179 K/mm3 (150-420); Red Blood Count 4.57 M/mm3 (4.20-5.40); Red Cell Distribution Width 13.1 % (11.6-14.4); White Blood Count 6.8 K/mm3 (4.8-10.8)
[2024-12-23 08:49] LABS: Base Excess ABG -2.8 mmol/L (0-2); Carboxyhemoglobin 0.3 % (0-1.5); HCO3 ABG 22.1 mmol/L (23-29); Methemoglobin ABG 0.4 % (0-1.5); Oxygen Content ABG 18.1 %vol (16.0-22.0); Oxygen Saturation ABG 93.1 % (95-97); Oxyhemoglobin 92.4 % (94-100); PCO2 ABG 39.1 mmHg (35-45); PO2 ABG 66.8 mmHg (75-85); Reduced Hemoglobin 6.9 % (0-1.5); pH ABG 7.37 (7.35-7.45)
[2024-12-23 08:50] LABS: Device NASAL CANNULA; Modified Allen's Test Pass; Site Drawn LEFT RADIAL
[2024-12-23 10:02] LABS: Alanine Aminotransferase 20 U/L (14-59); Albumin Level 2.7 g/dL (3.4-5.0); Alkaline Phosphatase 78 U/L (46-116); Anion Gap 8 mmol/L (4-12); Aspartate Amino Transferase 22 U/L (15-37); Bilirubin,Total 0.4 mg/dL (0.00-1.00); Blood Urea Nitrogen 13 mg/dL (7-18); Calcium 7.9 mg/dL (8.5-10.1); Carbon Dioxide 28 mmol/L (21-32); Chloride 106 mmol/L (98-108); Estimated CRCL calculation 47 ml/min; Estimated Glomerular Filt Rate 53; Glucose 103 mg/dL (70-99); Osmolality Calculated 294 mOsm/kg (285-295); Potassium 3.9 mmol/L (3.5-5.1); Sodium 142 mmol/L (136-145); Total Protein 5.9 g/dL (6.4-8.2)
[2024-12-23 10:26] LABS: Total Hemoglobin 13.9 g/dL (12.0-18.0)
[2024-12-23] MEDS: OSELTAMIVIR PHOSPHATE 30 MG CAPSULE PO ×2 (10:52→20:53)
[2024-12-23] MEDS: SODIUM CHLORIDE 0.9% IV 1,000 ML 100 ML IV CONT ×2 (10:53→20:51)
[2024-12-23] MEDS: IPRATROPIUM 0.5 MG/ALBUTEROL SULFATE 2.5 MG AMPUL.NEB 3 ML INHALATION ×2 (13:08→16:50)
[2024-12-23] MEDS: PANTOPRAZOLE 40 MG TABLET PO (13:11)
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
--- NOTE | 2024-12-23 20:46 | PC.NURSE ---
1000 weaned off o2 at this time. does not not food. wants to sleep and most of time will curl up in ball and claims not not. spo2 93%
--- NOTE | 2024-12-23 20:47 | PC.NURSE ---
1500 does not want to eat. food sounds not good. wants to be left alone. encouraged to use esau. o2 spo2 92%
[2024-12-23] MEDS: guaiFENesin 12 HR 600 MG TABCR 1200 MG PO (20:53)
[2024-12-24] VITALS (7 sets, daily range): BP systolic 109–134; BP diastolic 53–69; PULSE 82–108; RESP 18–22; TEMP 36.7–37.4; O2SAT 91–97
[2024-12-24] MEDS: IPRATROPIUM 0.5 MG/ALBUTEROL SULFATE 2.5 MG AMPUL.NEB 3 ML INHALATION ×4 (00:34→18:00)
[2024-12-24] MEDS: SODIUM CHLORIDE 0.9% IV 1,000 ML 100 ML IV CONT ×2 (06:30→16:53)
[2024-12-24] MEDS: guaiFENesin 12 HR 600 MG TABCR 1200 MG PO ×2 (09:55→21:17)
[2024-12-24] MEDS: PANTOPRAZOLE 40 MG TABLET PO (09:56)
[2024-12-24] MEDS: OSELTAMIVIR PHOSPHATE 30 MG CAPSULE PO ×2 (09:56→21:17)
[2024-12-24] MEDS: levoFLOXacin TAB 500 MG, levoFLOXacin TAB 250 MG 750 MG PO (09:56)
[2024-12-24 10:25] LABS: Basophils Absolute Auto 0.03 K/mm3 (0.00-0.10); Basophils Percent Auto 0.7 % (0.0-1.0); Eosinophils Absolute Auto 0.06 K/mm3 (0.02-0.50); Eosinophils Percent Auto 1.4 % (1.0-6.0); Hematocrit 37.9 % (35.0-42.0); Immature Granulocyte Absolute 0.02 K/mm3 (0.00-0.00); Immature Granulocyte Percent A 0.5 % (0.0-0.0); Lymphocytes Absolute Auto 0.94 K/mm3 (1.10-4.50); Lymphocytes Percent Auto 22.5 % (18.0-42.0); Mean Corpuscular Hemoglobin 28.8 pg (27.0-31.0); Mean Corpuscular Volume 99.2 fL (78.0-102.0); Mean Platelet Volume 9.4 fl (9.2-11.8); Monocytes Absolute Auto 0.44 K/mm3 (0.10-0.90); Monocytes Percent Auto 10.6 % (2.0-11.0); Neutrophils Absolute Auto 2.68 K/mm3 (1.70-7.20); Neutrophils Percent Auto 64.3 % (50.0-70.0); Platelet Count Result 161 K/mm3 (150-420); Red Blood Count 3.82 M/mm3 (4.20-5.40); Red Cell Distribution Width 13.3 % (11.6-14.4); White Blood Count 4.2 K/mm3 (4.8-10.8)
[2024-12-24 10:33] LABS: Alanine Aminotransferase 24 U/L (14-59); Albumin Level 2.4 g/dL (3.4-5.0); Alkaline Phosphatase 73 U/L (46-116); Anion Gap 10 mmol/L (4-12); Aspartate Amino Transferase 30 U/L (15-37); Bilirubin,Total 0.2 mg/dL (0.00-1.00); Blood Urea Nitrogen 13 mg/dL (7-18); Calcium 7.7 mg/dL (8.5-10.1); Carbon Dioxide 25 mmol/L (21-32); Chloride 106 mmol/L (98-108); Estimated CRCL calculation 55 ml/min; Estimated Glomerular Filt Rate > 60; Glucose 97 mg/dL (70-99); Magnesium 1.8 mg/dL (1.8-2.4); Osmolality Calculated 292 mOsm/kg (285-295); Potassium 3.8 mmol/L (3.5-5.1); Sodium 141 mmol/L (136-145); Total Protein 5.2 g/dL (6.4-8.2)
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
[2024-12-25] VITALS (8 sets, daily range): BP systolic 112–147; BP diastolic 58–74; PULSE 65–96; RESP 17–20; TEMP 36.6–37.2; O2SAT 94–97
[2024-12-25] MEDS: IPRATROPIUM 0.5 MG/ALBUTEROL SULFATE 2.5 MG AMPUL.NEB 3 ML INHALATION ×4 (00:07→18:09)
[2024-12-25] MEDS: SODIUM CHLORIDE 0.9% IV 1,000 ML 100 ML IV CONT (02:03)
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
[2024-12-25] MEDS: ACETAMINOPHEN 325 MG TABLET 650 MG PO (09:56)
[2024-12-25] MEDS: guaiFENesin 12 HR 600 MG TABCR 1200 MG PO ×2 (09:58→20:17)
[2024-12-25] MEDS: LEVOTHYROXINE SODIUM 88 MCG TABLET PO (09:58)
[2024-12-25] MEDS: OSELTAMIVIR PHOSPHATE 30 MG CAPSULE PO ×2 (09:58→20:17)
[2024-12-25] MEDS: PANTOPRAZOLE 40 MG TABLET PO (09:58)
[2024-12-26] VITALS (7 sets, daily range): BP systolic 156; BP diastolic 74; PULSE 65–75; RESP 16–20; TEMP 36.6; O2SAT 94–98
[2024-12-26] MEDS: IPRATROPIUM 0.5 MG/ALBUTEROL SULFATE 2.5 MG AMPUL.NEB 3 ML INHALATION ×3 (00:21→11:32)
[2024-12-26 06:13] LABS: Basophils Absolute Auto 0.03 K/mm3 (0.00-0.10); Basophils Percent Auto 0.5 % (0.0-1.0); Eosinophils Absolute Auto 0.01 K/mm3 (0.02-0.50); Eosinophils Percent Auto 0.2 % (1.0-6.0); Hematocrit 38.5 % (35.0-42.0); Hemoglobin 12.1 g/dL (11.7-13.8); Immature Granulocyte Absolute 0.02 K/mm3 (0.00-0.00); Immature Granulocyte Percent A 0.3 % (0.0-0.0); Lymphocytes Absolute Auto 1.73 K/mm3 (1.10-4.50); Lymphocytes Percent Auto 29.5 % (18.0-42.0); Mean Corpuscular HGB Conc 31.4 g/dL (32-36); Mean Corpuscular Hemoglobin 28.1 pg (27.0-31.0); Mean Corpuscular Volume 89.3 fL (78.0-102.0); Mean Platelet Volume 9.9 fl (9.2-11.8); Monocytes Absolute Auto 0.44 K/mm3 (0.10-0.90); Monocytes Percent Auto 7.5 % (2.0-11.0); Neutrophils Absolute Auto 3.64 K/mm3 (1.70-7.20); Platelet Count Result 198 K/mm3 (150-420); Red Blood Count 4.31 M/mm3 (4.20-5.40); White Blood Count 5.9 K/mm3 (4.8-10.8)
[2024-12-26 06:25] LABS: Alanine Aminotransferase 36 U/L (14-59); Albumin Level 2.6 g/dL (3.4-5.0); Alkaline Phosphatase 89 U/L (46-116); Anion Gap 11 mmol/L (4-12); Aspartate Amino Transferase 37 U/L (15-37); Bilirubin,Total 0.5 mg/dL (0.00-1.00); Blood Urea Nitrogen 9 mg/dL (7-18); Calcium 8.3 mg/dL (8.5-10.1); Carbon Dioxide 26 mmol/L (21-32); Chloride 106 mmol/L (98-108); Estimated CRCL calculation 51 ml/min; Estimated Glomerular Filt Rate 59; Glucose 91 mg/dL (70-99); Magnesium 1.5 mg/dL (1.8-2.4); Osmolality Calculated 294 mOsm/kg (285-295); Potassium 3.4 mmol/L (3.5-5.1); Sodium 143 mmol/L (136-145); Total Protein 6.2 g/dL (6.4-8.2)
[2024-12-26] MEDS: guaiFENesin 12 HR 600 MG TABCR 1200 MG PO (09:19)
[2024-12-26] MEDS: LEVOTHYROXINE SODIUM 88 MCG TABLET PO (09:19)
[2024-12-26] MEDS: ACETAMINOPHEN 325 MG TABLET 650 MG PO (09:19)
[2024-12-26] MEDS: PANTOPRAZOLE 40 MG TABLET PO (09:20)
[2024-12-26] MEDS: OSELTAMIVIR PHOSPHATE 30 MG CAPSULE PO (09:20)
[2024-12-26] MEDS: levoFLOXacin TAB 500 MG, levoFLOXacin TAB 250 MG 750 MG PO (09:21)
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
[2024-12-26] MEDS: POTASSIUM CHLORIDE 20 MEQ ER TABLET 40 MEQ PO (11:18)
[2024-12-26] MEDS: MAGNESIUM OXIDE 400 MG TABLET PO (11:18)
--- NOTE | 2024-12-26 14:20 | PC.NURSE ---
Discharge instructions given to patient and patient voiced understanding. Personal items gathered by patient and family and sent home with patient. Patient left unit in w/c accompanied by mortgage underwriter and patient's son. Patient left hospital grounds in privately owned vehicle.
--- NOTE | 2024-12-27 13:10 | PC.NURSE ---
Continues to feel weak, getting rest of rx filled today, encouraged fluid intake
== END 2024-12-26 14:20 | disposition home or self-care (01) | DRG 917 ==
LOC: CHSED 20:51 → CHS2ND 21:09
PROVIDERS: Admitting Provider Internal Medicine; Emergency Provider Emergency Medicine; Visit Provider Nurse Practitioner Acute Care
DX: T58.01XA Toxic effect of carbon monoxide from motor vehicle exhaust, accidental (unintentional), initial encounter (principal); J10.00 Influenza due to other identified influenza virus with unspecified type of pneumonia; J96.01 Acute respiratory failure with hypoxia; E03.9 Hypothyroidism, unspecified; K21.9 Gastro-esophageal reflux disease without esophagitis; Z85.3 Personal history of malignant neoplasm of breast
CPT/HCPCS: 36415; 36600; 71045; 80053; 82375; 82805; 83050; 83605; 83735; 85018; 85025; 87040; 87637; 94640; 94667; 96365; 97161; 99285; A9270; G0378; J1956; J7030